=== PATIENT | female | born 1955 | race Caucasian/White ===

== ENCOUNTER 2021-05-24 00:27 | Inpatient (IN) | payer MEDICARE, MEDICAID ==
[2021-05-24] MEDS ORDERED: Cefepime 2 GM VIAL ONE (01:36)
[2021-05-24 01:40] LABS: #Basophils 0.1 10x3/uL (0.0-0.2); #Monocytes 1.4 10x3/uL (0.0-1.1); #Neutrophils 12.3 10x3/uL (1.5-8.4); %Basophils 0.6 % (0.0-2.0); %Eosinophils 0.2 % (0.0-6.0); %Lymphocytes 12.9 % (18.0-47.0); %Monocytes 8.6 % (0.0-10.0); %Neutrophils 76.1 % (40.0-75.0); Hemoglobin 13.1 g/dL (12.0-15.5); Mean Corpuscular HGB CONC 34.6 g/dL (32.0-36.0); Mean Corpuscular Volume 89.8 fl (81.6-98.3); Mean Platelet Volume 9.5 fl (7.4-10.4); Platelet Count 462 10x3/uL (150-450); RBC Distribution Width 12.7 % (11.5-14.5); Red Blood Cell (RBC) Count 4.22 10x6/uL (3.90-5.03); White Blood Cell (WBC) Count 16.2 10x3/uL (3.5-10.5)
[2021-05-24 01:51] LABS: ALT (SGPT) 21 U/L (8-55); AST (SGOT) 20 U/L (5-34); Albumin 2.9 g/dL (3.4-4.8); Alkaline Phosphatase 142 U/L (40-110); Anion Gap 16 mmol/L (10-20); BUN (Urea Nitrogen) 10 mg/dL (9.8-20.1); Bilirubin, Total 0.7 mg/dL (0.2-1.2); Calc. Creatinine Clearance 0 mL/min (70-130); Calcium 9.6 mg/dL (7.8-10.44); Carbon Dioxide 28 mmol/L (23-31); Chloride 91 mmol/L (98-107); Globulin 4.6 g/dL (2.4-3.5); Glucose 101 mg/dL (80-115); Protein, Total 7.5 g/dL (5.8-8.1); Sodium 132 mmol/L (136-145)
[2021-05-24 02:04] LABS: Potassium 2.7 mmol/L (3.5-5.1)
[2021-05-24] MEDS ORDERED: Dextrose 50% Abboject 50 ML SYRINGE SLOW IVP PRN (02:18)
[2021-05-24] MEDS ORDERED: Zolpidem Tartrate 5 MG TAB PO PRN (02:18)
[2021-05-24] MEDS ORDERED: HumaLOG 300 UNITS/3 ML VIAL SC PRN (02:18)
[2021-05-24] MEDS ORDERED: Dextrose 5% in Water 1,000 ML IV PRN (02:18)
[2021-05-24] MEDS ORDERED: Calcium Carbonate 500 MG ChewTAB PO PRN (02:18)
[2021-05-24] MEDS ORDERED: Acetaminophen 325 MG TAB PO PRN (02:18)
[2021-05-24] MEDS ORDERED: Guaifenesin DM 100-10/5 ML UDCUP PO PRN (02:18)
[2021-05-24] MEDS ORDERED: Senokot S 8.6-50 MG TAB PO PRN (02:18)
[2021-05-24] MEDS ORDERED: Morphine 4 MG/ML VIAL ONE (02:22)
[2021-05-24] MEDS ORDERED: NS 0.9% w/ 40 MEQ KCL 1,000 ML IV SCH (02:30)
[2021-05-24] MEDS ORDERED: Potassium Chloride 20 MEQ TAB PO SCH (02:45)
[2021-05-24 03:44] LABS: #Basophils 0.1 10x3/uL (0.0-0.2); #Monocytes 1.2 10x3/uL (0.0-1.1); #Neutrophils 9.9 10x3/uL (1.5-8.4); %Basophils 0.5 % (0.0-2.0); %Eosinophils 0.3 % (0.0-6.0); %Lymphocytes 14.1 % (18.0-47.0); %Monocytes 8.9 % (0.0-10.0); %Neutrophils 74.7 % (40.0-75.0); Mean Corpuscular HGB CONC 34.2 g/dL (32.0-36.0); Mean Corpuscular Hemoglobin 30.8 pg (27.0-33.0); Mean Corpuscular Volume 90.2 fl (81.6-98.3); Mean Platelet Volume 9.1 fl (7.4-10.4); Platelet Count 404 10x3/uL (150-450); RBC Distribution Width 12.7 % (11.5-14.5); Red Blood Cell (RBC) Count 3.89 10x6/uL (3.90-5.03); White Blood Cell (WBC) Count 13.2 10x3/uL (3.5-10.5)
[2021-05-24 03:54] LABS: Anion Gap 14 mmol/L (10-20); BUN (Urea Nitrogen) 9 mg/dL (9.8-20.1); Calc. Creatinine Clearance 0 mL/min (70-130); Calcium 8.7 mg/dL (7.8-10.44); Carbon Dioxide 27 mmol/L (23-31); Chloride 96 mmol/L (98-107); Glucose 99 mg/dL (80-115); Magnesium 1.5 mg/dL (1.6-2.6); Sodium 134 mmol/L (136-145)
[2021-05-24 04:05] LABS: Potassium 2.7 mmol/L (3.5-5.1)
[2021-05-24] MEDS ORDERED: Potassium Chloride 20 MEQ TAB ONE (04:32)
[2021-05-24] MEDS ORDERED: NS 0.9% w/ 40 MEQ KCL 1,000 ML IV ONE (04:33)
[2021-05-24] MEDS: Famotidine 20 MG TAB PO SCH ×2 (09:02→21:41)
[2021-05-24] MEDS: Lisinopril 10 MG TAB PO SCH (09:03)
[2021-05-24] MEDS: Nicotine 21 MG PATCH TD SCH (09:03)
[2021-05-24] MEDS: Morphine 2 MG/ML VIAL SLOW IVP PRN ×2 (09:03→13:49)
[2021-05-24] MEDS: Enoxaparin Sodium 40 MG/0.4 ML SYRINGE SC SCH (09:03)
[2021-05-24] MEDS: Aspirin 81 mg Enteric Coated Tablet PO SCH (09:03)
[2021-05-24 10:41] LABS: SARS-CoV-2 NAA Rapid Test Not Detected (NotDetected)
[2021-05-24] MEDS: HYDROcodone/Acetaminophen 5/325 mg Tablet PO PRN ×2 (11:41→23:43)
[2021-05-24 11:54] LABS: Hemoglobin A1c 5.2 % (4.0-6.0)
[2021-05-24] MEDS ORDERED: Magnesium 2 GM/50 ML 2 GM in Premix Bag 1 BAG IVPB SCH (13:45)
[2021-05-24] MEDS ORDERED: Vancomycin 1 GM in Premix Bag 1 BAG IVPB SCH (14:00)
[2021-05-24] MEDS ORDERED: Vancomycin 1 GM in Sodium Chloride 0.9% 250 ML 250 ML IVPB SCH (14:00)
[2021-05-24 14:04] LABS: Anion Gap 11 mmol/L (10-20); BUN (Urea Nitrogen) 8 mg/dL (9.8-20.1); Calc. Creatinine Clearance 120 mL/min (70-130); Calcium 8.4 mg/dL (7.8-10.44); Carbon Dioxide 25 mmol/L (23-31); Chloride 101 mmol/L (98-107); Glucose 95 mg/dL (80-115); Potassium 3.3 mmol/L (3.5-5.1); Sodium 134 mmol/L (136-145)
[2021-05-24] MEDS: Cefepime 2 GM in Sodium Chloride 0.9% 100 ML IVPB SCH (15:26)
[2021-05-24] MEDS: Gabapentin 300 MG CAP PO SCH ×2 (15:26→21:41)
[2021-05-24] MEDS: Morphine 4 MG/ML VIAL SLOW IVP PRN (19:33)
[2021-05-25] MEDS: Vancomycin HCl 1 GM in Sodium Chloride 0.9% 250 ML 250 ML IVPB SCH ×2 (02:09→18:51)
[2021-05-25] MEDS: Cefepime 2 GM in Sodium Chloride 0.9% 100 ML IVPB SCH ×2 (02:09→15:58)
[2021-05-25 04:39] LABS: #Eosinphils 0.1 10x3/uL (0.0-0.5); #Monocytes 0.7 10x3/uL (0.0-1.1); %Basophils 0.5 % (0.0-2.0); %Eosinophils 1.4 % (0.0-6.0); %Lymphocytes 22.6 % (18.0-47.0); %Neutrophils 64.7 % (40.0-75.0); Hemoglobin 11.4 g/dL (12.0-15.5); Mean Corpuscular HGB CONC 33.9 g/dL (32.0-36.0); Mean Corpuscular Hemoglobin 30.9 pg (27.0-33.0); Mean Corpuscular Volume 91.1 fl (81.6-98.3); Mean Platelet Volume 9.2 fl (7.4-10.4); Platelet Count 394 10x3/uL (150-450); Red Blood Cell (RBC) Count 3.69 10x6/uL (3.90-5.03); White Blood Cell (WBC) Count 7.8 10x3/uL (3.5-10.5)
[2021-05-25 04:48] LABS: ALT (SGPT) 17 U/L (8-55); AST (SGOT) 18 U/L (5-34); Albumin 2.3 g/dL (3.4-4.8); Alkaline Phosphatase 114 U/L (40-110); Anion Gap 11 mmol/L (10-20); BUN (Urea Nitrogen) 9 mg/dL (9.8-20.1); Bilirubin, Total 0.4 mg/dL (0.2-1.2); Calc. Creatinine Clearance 106 mL/min (70-130); Calcium 8.7 mg/dL (7.8-10.44); Carbon Dioxide 28 mmol/L (23-31); Chloride 101 mmol/L (98-107); Globulin 3.6 g/dL (2.4-3.5); Glucose 87 mg/dL (80-115); Protein, Total 5.9 g/dL (5.8-8.1); Sodium 137 mmol/L (136-145)
[2021-05-25] MEDS ORDERED: Potassium Phosphate 30 MMOL in Sodium Chloride 0.9% 250 ML 250 ML IVPB SCH (08:00)
[2021-05-25 08:58] LABS: Magnesium 1.9 mg/dL (1.6-2.6)
[2021-05-25] MEDS: Morphine 4 MG/ML VIAL SLOW IVP PRN ×2 (09:45→14:32)
[2021-05-25] MEDS: Aspirin 81 mg Enteric Coated Tablet PO SCH (11:09)
[2021-05-25] MEDS: Lisinopril 10 MG TAB PO SCH (11:09)
[2021-05-25] MEDS: Famotidine 20 MG TAB PO SCH ×2 (11:09→21:07)
[2021-05-25] MEDS: Gabapentin 300 MG CAP PO SCH ×3 (11:09→21:12)
[2021-05-25] MEDS: Enoxaparin Sodium 40 MG/0.4 ML SYRINGE SC SCH (11:09)
[2021-05-25] MEDS: Potassium Chloride 20 MEQ in Premix Bag 1 BAG IVPB SCH ×2 (11:43→18:51)
[2021-05-25 13:38] LABS: Vancomycin, Trough 8.3 ug/mL
[2021-05-25] MEDS: Nicotine 21 MG PATCH TD SCH (14:57)
[2021-05-25] MEDS ORDERED: Fentanyl 100 MCG/2 ML VIAL ONE (16:16)
[2021-05-25] MEDS ORDERED: PROPOFOL 20 ML ONE (16:16)
[2021-05-25] MEDS ORDERED: Midazolam HCl 2 mg/2 ml Vial ONE (16:16)
[2021-05-25] MEDS ORDERED: Glycopyrrolate 0.2 MG/ML 5 ML SYRINGE ONE (16:17)
[2021-05-25] MEDS ORDERED: Lidocaine 1% PF 5 ML VIAL ONE (16:17)
[2021-05-25] MEDS ORDERED: Ondansetron PF 4 MG/2 ML Vial ONE (16:17)
[2021-05-25] MEDS ORDERED: Morphine 4 MG/ML VIAL ONE ×2 (17:49→17:58)
[2021-05-25] MEDS: HYDROcodone/Acetaminophen 5/325 mg Tablet PO PRN (18:52)
[2021-05-26] MEDS: HYDROcodone/Acetaminophen 5/325 mg Tablet PO PRN ×4 (00:24→22:03)
[2021-05-26] MEDS: Cefepime 2 GM in Sodium Chloride 0.9% 100 ML IVPB SCH ×2 (02:07→13:49)
[2021-05-26] MEDS: Morphine 4 MG/ML VIAL SLOW IVP PRN ×3 (03:59→17:50)
[2021-05-26 05:24] LABS: #Basophils 0.1 10x3/uL (0.0-0.2); #Eosinphils 0.1 10x3/uL (0.0-0.5); #Monocytes 0.7 10x3/uL (0.0-1.1); #Neutrophils 8.4 10x3/uL (1.5-8.4); %Basophils 0.4 % (0.0-2.0); %Eosinophils 1.2 % (0.0-6.0); %Lymphocytes 15.5 % (18.0-47.0); %Neutrophils 75.3 % (40.0-75.0); Hemoglobin 11.3 g/dL (12.0-15.5); Mean Corpuscular HGB CONC 33.7 g/dL (32.0-36.0); Mean Corpuscular Hemoglobin 30.8 pg (27.0-33.0); Mean Corpuscular Volume 91.3 fl (81.6-98.3); Platelet Count 395 10x3/uL (150-450); RBC Distribution Width 13.2 % (11.5-14.5); Red Blood Cell (RBC) Count 3.67 10x6/uL (3.90-5.03); White Blood Cell (WBC) Count 11.1 10x3/uL (3.5-10.5)
[2021-05-26 05:33] LABS: ALT (SGPT) 15 U/L (8-55); AST (SGOT) 15 U/L (5-34); Albumin 2.2 g/dL (3.4-4.8); Alkaline Phosphatase 109 U/L (40-110); Anion Gap 13 mmol/L (10-20); BUN (Urea Nitrogen) 9 mg/dL (9.8-20.1); Bilirubin, Total 0.3 mg/dL (0.2-1.2); Calc. Creatinine Clearance 106 mL/min (70-130); Calcium 8.3 mg/dL (7.8-10.44); Carbon Dioxide 24 mmol/L (23-31); Chloride 103 mmol/L (98-107); Globulin 3.5 g/dL (2.4-3.5); Glucose 155 mg/dL (80-115); Potassium 3.5 mmol/L (3.5-5.1); Protein, Total 5.7 g/dL (5.8-8.1); Sodium 136 mmol/L (136-145)
[2021-05-26] MEDS: Vancomycin HCl 1 GM in Sodium Chloride 0.9% 250 ML 250 ML IVPB SCH ×2 (05:37→17:51)
[2021-05-26] MEDS: Lisinopril 10 MG TAB PO SCH (08:31)
[2021-05-26] MEDS: Gabapentin 300 MG CAP PO SCH ×3 (08:31→22:02)
[2021-05-26] MEDS: Famotidine 20 MG TAB PO SCH ×2 (08:31→22:02)
[2021-05-26] MEDS: Nicotine 21 MG PATCH TD SCH (08:32)
[2021-05-26] MEDS: Aspirin 81 mg Enteric Coated Tablet PO SCH (08:32)
[2021-05-26] MEDS: Enoxaparin Sodium 40 MG/0.4 ML SYRINGE SC SCH (08:32)
[2021-05-26] MEDS: Ondansetron PF 4 MG/2 ML Vial IVP PRN (13:49)
[2021-05-26] MEDS ORDERED: Potassium Chloride 20 MEQ TAB PO SCH (14:30)
[2021-05-27] MEDS: Morphine 4 MG/ML VIAL SLOW IVP PRN ×3 (00:38→21:37)
[2021-05-27] MEDS: Cefepime 2 GM in Sodium Chloride 0.9% 100 ML IVPB SCH ×2 (02:27→14:17)
[2021-05-27] MEDS: Vancomycin HCl 1 GM in Sodium Chloride 0.9% 250 ML 250 ML IVPB SCH ×2 (04:51→18:17)
[2021-05-27] MEDS: HYDROcodone/Acetaminophen 5/325 mg Tablet PO PRN ×2 (06:44→14:34)
[2021-05-27 10:10] LABS: Anion Gap 10 mmol/L (10-20); BUN (Urea Nitrogen) 7 mg/dL (9.8-20.1); Calc. Creatinine Clearance 117 mL/min (70-130); Calcium 8.5 mg/dL (7.8-10.44); Carbon Dioxide 27 mmol/L (23-31); Chloride 106 mmol/L (98-107); Glucose 94 mg/dL (80-115); Sodium 139 mmol/L (136-145)
[2021-05-27] MEDS: Aspirin 81 mg Enteric Coated Tablet PO SCH (10:22)
[2021-05-27] MEDS: Famotidine 20 MG TAB PO SCH ×2 (10:22→21:41)
[2021-05-27] MEDS: Enoxaparin Sodium 40 MG/0.4 ML SYRINGE SC SCH (10:23)
[2021-05-27] MEDS: Gabapentin 300 MG CAP PO SCH ×3 (10:23→21:40)
[2021-05-27] MEDS: Lisinopril 10 MG TAB PO SCH (10:23)
[2021-05-27] MEDS: Nicotine 21 MG PATCH TD SCH (10:24)
[2021-05-27 17:48] LABS: Vancomycin, Trough 10.8 ug/mL
[2021-05-28] MEDS: Cefepime 2 GM in Sodium Chloride 0.9% 100 ML IVPB SCH ×2 (02:40→14:39)
[2021-05-28] MEDS: HYDROcodone/Acetaminophen 5/325 mg Tablet PO PRN ×2 (02:45→18:07)
[2021-05-28] MEDS: Vancomycin HCl 1 GM in Sodium Chloride 0.9% 250 ML 250 ML IVPB SCH ×2 (06:26→18:45)
[2021-05-28] MEDS: Aspirin 81 mg Enteric Coated Tablet PO SCH (06:30)
[2021-05-28] MEDS: Gabapentin 300 MG CAP PO SCH ×3 (06:30→20:41)
[2021-05-28] MEDS: Lisinopril 10 MG TAB PO SCH (06:31)
[2021-05-28] MEDS: Famotidine 20 MG TAB PO SCH ×2 (06:31→20:41)
[2021-05-28] MEDS: Morphine 4 MG/ML VIAL SLOW IVP PRN ×2 (06:44→13:31)
[2021-05-28] MEDS: Enoxaparin Sodium 40 MG/0.4 ML SYRINGE SC SCH (07:37)
[2021-05-28] MEDS: Nicotine 21 MG PATCH TD SCH (09:42)
[2021-05-28] MEDS ORDERED: Heparin 10,000 UNITS/ 10 ML VIAL ONE (09:45)
[2021-05-28] MEDS ORDERED: Lidocaine 1% (PF) 30 ML VIAL ONE (09:45)
[2021-05-28] MEDS ORDERED: Fentanyl 100 MCG/2 ML VIAL ONE (09:46)
[2021-05-28] MEDS ORDERED: Sodium Chloride 0.9% 1,000 ML ONE (09:47)
[2021-05-28] MEDS ORDERED: Midazolam HCl 2 mg/2 ml Vial ONE (09:47)
[2021-05-28] MEDS ORDERED: Nitroglycerin 50 MG/250 ML BOT 250 ML ONE (10:52)
[2021-05-28] MEDS ORDERED: Nitroglycerin 0.4 MG TAB (25 Tab Bottle) SL PRN (11:07)
[2021-05-28] MEDS ORDERED: Sodium Chloride 0.9% 200 ML IV PRN (11:07)
[2021-05-28] MEDS ORDERED: Acetaminophen/Codeine 30-300mg Tablet PO PRN ×2 (11:07)
[2021-05-28] MEDS ORDERED: Sodium Chloride 0.9% 1,000 ML IV SCH (11:15)
[2021-05-29] MEDS: Cefepime 2 GM in Sodium Chloride 0.9% 100 ML IVPB SCH ×2 (02:53→15:45)
[2021-05-29] MEDS: Morphine 4 MG/ML VIAL SLOW IVP PRN (03:15)
[2021-05-29] MEDS: Vancomycin HCl 1 GM in Sodium Chloride 0.9% 250 ML 250 ML IVPB SCH ×2 (05:22→18:36)
[2021-05-29] MEDS: HYDROcodone/Acetaminophen 5/325 mg Tablet PO PRN ×3 (05:29→22:52)
[2021-05-29] MEDS: Aspirin 81 mg Enteric Coated Tablet PO SCH (10:03)
[2021-05-29] MEDS: Gabapentin 300 MG CAP PO SCH ×3 (10:03→22:53)
[2021-05-29] MEDS: Lisinopril 10 MG TAB PO SCH (10:03)
[2021-05-29] MEDS: Enoxaparin Sodium 40 MG/0.4 ML SYRINGE SC SCH (10:03)
[2021-05-29] MEDS: Famotidine 20 MG TAB PO SCH ×2 (10:03→22:52)
[2021-05-29] MEDS: Nicotine 21 MG PATCH TD SCH (10:04)
[2021-05-29] MEDS: Ondansetron PF 4 MG/2 ML Vial IVP PRN (12:19)
[2021-05-29] MEDS ORDERED: Acetaminophen/Codeine 30-300mg Tablet PO PRN ×2 (15:54)
[2021-05-30] MEDS ORDERED: cefTRIAXone\\ROCEPHIN 1 GM VIAL IM SCH (02:15)
[2021-05-30] MEDS: HYDROcodone/Acetaminophen 5/325 mg Tablet PO PRN ×4 (03:34→21:29)
[2021-05-30] MEDS: Cefepime 2 GM in Sodium Chloride 0.9% 100 ML IVPB SCH ×2 (03:36→17:07)
[2021-05-30 05:56] LABS: BUN (Urea Nitrogen) 9 mg/dL (9.8-20.1); Calc. Creatinine Clearance 120 mL/min (70-130); Vancomycin, Trough 12.4 ug/mL
[2021-05-30] MEDS ORDERED: Sodium Chloride 0.9% 250 ML 250 ML ONE (06:00)
[2021-05-30] MEDS: Vancomycin HCl 1 GM in Sodium Chloride 0.9% 250 ML 250 ML IVPB SCH ×2 (06:28→18:36)
[2021-05-30] MEDS: Gabapentin 300 MG CAP PO SCH ×3 (09:58→21:29)
[2021-05-30] MEDS: Aspirin 81 mg Enteric Coated Tablet PO SCH (09:59)
[2021-05-30] MEDS: Famotidine 20 MG TAB PO SCH ×2 (09:59→21:29)
[2021-05-30] MEDS: Lisinopril 10 MG TAB PO SCH (09:59)
[2021-05-30] MEDS: Nicotine 21 MG PATCH TD SCH (10:00)
[2021-05-30] MEDS: Enoxaparin Sodium 40 MG/0.4 ML SYRINGE SC SCH (10:00)
[2021-05-30] MEDS ORDERED: Cefepime 2 GM VIAL ONE (17:03)
[2021-05-30] MEDS ORDERED: cefTRIAXone\\ROCEPHIN 2 GM in Sodium Chloride 0.9% 100 ML IVPB SCH (21:00)
[2021-05-30] MEDS: metroNIDAZOLE 500 MG TAB PO SCH (21:30)
[2021-05-31 06:43] LABS: #Basophils 0.1 10x3/uL (0.0-0.2); #Eosinphils 0.3 10x3/uL (0.0-0.5); #Monocytes 0.6 10x3/uL (0.0-1.1); #Neutrophils 5.6 10x3/uL (1.5-8.4); %Basophils 0.7 % (0.0-2.0); %Eosinophils 3.1 % (0.0-6.0); %Lymphocytes 23.1 % (18.0-47.0); %Monocytes 7.1 % (0.0-10.0); %Neutrophils 64.3 % (40.0-75.0); Hemoglobin 12.3 g/dL (12.0-15.5); Mean Corpuscular HGB CONC 31.9 g/dL (32.0-36.0); Mean Corpuscular Hemoglobin 30.8 pg (27.0-33.0); Mean Corpuscular Volume 96.5 fl (81.6-98.3); Mean Platelet Volume 9.1 fl (7.4-10.4); Platelet Count 403 10x3/uL (150-450); RBC Distribution Width 13.1 % (11.5-14.5); White Blood Cell (WBC) Count 8.7 10x3/uL (3.5-10.5)
[2021-05-31 06:54] LABS: Anion Gap 11 mmol/L (10-20); BUN (Urea Nitrogen) 10 mg/dL (9.8-20.1); Calc. Creatinine Clearance 100 mL/min (70-130); Carbon Dioxide 28 mmol/L (23-31); Chloride 105 mmol/L (98-107); Potassium 4.2 mmol/L (3.5-5.1); Sodium 140 mmol/L (136-145)
[2021-05-31 09:19] LABS: Calcium 9.3 mg/dL (7.8-10.44); Glucose 85 mg/dL (80-115)
[2021-05-31] MEDS ORDERED: Carvedilol 6.25 MG TAB PO SCH (09:30)
[2021-05-31] MEDS: Enoxaparin Sodium 40 MG/0.4 ML SYRINGE SC SCH ×3 (09:36→14:14)
[2021-05-31] MEDS: Aspirin 81 mg Enteric Coated Tablet PO SCH (09:36)
[2021-05-31] MEDS: Famotidine 20 MG TAB PO SCH ×2 (09:37→21:46)
[2021-05-31] MEDS: metroNIDAZOLE 500 MG TAB PO SCH ×3 (09:37→21:45)
[2021-05-31] MEDS: Nicotine 21 MG PATCH TD SCH (09:37)
[2021-05-31] MEDS: Gabapentin 300 MG CAP PO SCH ×3 (09:37→21:45)
[2021-05-31] MEDS: Lisinopril 10 MG TAB PO SCH (09:40)
[2021-05-31] MEDS ORDERED: Sodium Bicarbonate 2.5 MEQ/5 ML VIAL ONE (09:46)
[2021-05-31] MEDS ORDERED: Lidocaine 1% PF 5 ML VIAL ONE (09:46)
[2021-05-31] MEDS: HYDROcodone/Acetaminophen 5/325 mg Tablet PO PRN ×2 (10:08→21:46)
[2021-05-31] MEDS: Morphine 4 MG/ML VIAL SLOW IVP PRN ×2 (13:48→17:16)
[2021-05-31] MEDS: Carvedilol 6.25 MG TAB PO SCH (18:20)
[2021-05-31] MEDS: Ondansetron PF 4 MG/2 ML Vial IVP PRN (21:45)
[2021-06-01] MEDS ORDERED: cefTRIAXone\\ROCEPHIN 2 GM in Sodium Chloride 0.9% 100 ML IVPB SCH (09:00)
[2021-06-01] MEDS: Enoxaparin Sodium 40 MG/0.4 ML SYRINGE SC SCH (09:55)
[2021-06-01] MEDS: Morphine 4 MG/ML VIAL SLOW IVP PRN ×2 (09:56→14:47)
[2021-06-01] MEDS: Gabapentin 300 MG CAP PO SCH ×2 (09:56→14:47)
[2021-06-01] MEDS: Aspirin 81 mg Enteric Coated Tablet PO SCH (09:57)
[2021-06-01] MEDS: Carvedilol 6.25 MG TAB PO SCH ×2 (09:57→17:28)
[2021-06-01] MEDS: Famotidine 20 MG TAB PO SCH (09:57)
[2021-06-01] MEDS: Lisinopril 10 MG TAB PO SCH (09:57)
[2021-06-01] MEDS: metroNIDAZOLE 500 MG TAB PO SCH ×2 (09:57→14:48)
[2021-06-01] MEDS: Nicotine 21 MG PATCH TD SCH (09:57)
[2021-06-01] MEDS: HYDROcodone/Acetaminophen 5/325 mg Tablet PO PRN ×2 (12:52→17:28)
[2021-06-01] MEDS: Ondansetron PF 4 MG/2 ML Vial IVP PRN (12:52)
[2021-06-01 14:23] VITALS: BMI 29.0
[2021-06-01 16:07] VITALS: BP 114/61; TEMP 97.6
== END 2021-06-01 19:50 | disposition home or self-care (01) | DRG 854 ==
LOC: CSHERS 00:27 → CSHERHOLD 03:02 → CSHTELE 08:26
PROVIDERS: ADMIT Emergency Medicine; ATTEND Family Medicine
PROC: B4001ZZ Plain Radiography of Abdominal Aorta using Low Osmolar Contrast (ICD-10-PCS; principal; 2021-05-24)
PROC: B50 Imaging, Veins, Plain Radiography (ICD-10-PCS; 2021-05-24)
PROC: 0Y6M0ZB Detachment at Right Foot, Partial 2nd Ray, Open Approach (ICD-10-PCS; 2021-05-25)
PROC: 0J9Q0ZZ Drainage of Right Foot Subcutaneous Tissue and Fascia, Open Approach (ICD-10-PCS; 2021-05-25)
PROC: 02HV33Z Insertion of Infusion Device into Superior Vena Cava, Percutaneous Approach (ICD-10-PCS; 2021-05-31)
PROC: B5181ZA Fluoroscopy of Superior Vena Cava using Low Osmolar Contrast, Guidance (ICD-10-PCS; 2021-05-31)
DX: A41.9 Sepsis, unspecified organism (principal); M86.171 Other acute osteomyelitis, right ankle and foot; L02.611 Cutaneous abscess of right foot; E11.52 Type 2 diabetes mellitus with diabetic peripheral angiopathy with gangrene; I96 Gangrene, not elsewhere classified; E11.42 Type 2 diabetes mellitus with diabetic polyneuropathy; F17.210 Nicotine dependence, cigarettes, uncomplicated; Z88.5 Allergy status to narcotic agent; E87.6 Hypokalemia; Z91.19 Patient's noncompliance with other medical treatment and regimen; E11.621 Type 2 diabetes mellitus with foot ulcer; L97.519 Non-pressure chronic ulcer of other part of right foot with unspecified severity; I12.9 Hypertensive chronic kidney disease with stage 1 through stage 4 chronic kidney disease, or unspecified chronic kidney disease; E11.22 Type 2 diabetes mellitus with diabetic chronic kidney disease; N18.2 Chronic kidney disease, stage 2 (mild); Z20.822 Contact with and (suspected) exposure to COVID-19; J44.9 Chronic obstructive pulmonary disease, unspecified
CPT/HCPCS: 36140; 36245; 36415; 36416; 36569; 75625; 75716; 80048; 80053; 80202; 82565; 83036; 83605; 83735; 84520; 85025; 85652; 86140; 87040; 88305; 93005; 93306; 93923; 93970; 96365; 96375; 99152; 99153; C1751; C1760; J0692; J0696; J1644; J1650; J1815; J2001; J2250; J2270; J2405; J2704; J3010; J3370; J3475; J3480; J3490; J7050; U0002

== ENCOUNTER 2021-06-17 13:08 | Outpatient (CLI) | payer MEDICAID, MEDICARE | END 2021-06-17 13:09 | disposition home or self-care (01) | LOC: CSHULT 13:08 | PROVIDERS: ATTEND Physical Medicine & Rehabilitation | DX: M79.89 Other specified soft tissue disorders (principal) | CPT/HCPCS: 93970 ==

== ENCOUNTER 2021-07-20 09:14 | Outpatient (CLI) | payer MEDICARE, MEDICAID | END 2021-07-20 09:15 | disposition home or self-care (01) | LOC: CSHWCC 09:14 | PROVIDERS: ATTEND Nurse Practitioner Family | DX: T81.89XA Other complications of procedures, not elsewhere classified, initial encounter (principal); E11.40 Type 2 diabetes mellitus with diabetic neuropathy, unspecified; E11.621 Type 2 diabetes mellitus with foot ulcer; L97.412 Non-pressure chronic ulcer of right heel and midfoot with fat layer exposed; E78.2 Mixed hyperlipidemia; G89.4 Chronic pain syndrome; I10 Essential (primary) hypertension; I87.2 Venous insufficiency (chronic) (peripheral); I89.0 Lymphedema, not elsewhere classified; K46.9 Unspecified abdominal hernia without obstruction or gangrene; R60.0 Localized edema | CPT/HCPCS: 97139; G0463; 99213 ==

== ENCOUNTER 2021-09-06 09:32 | Outpatient (CLI) | payer MEDICARE, MEDICAID | END 2021-09-06 09:33 | disposition home or self-care (01) | LOC: CSHWCC 09:32 | PROVIDERS: ATTEND Nurse Practitioner Family | DX: T81.89XA Other complications of procedures, not elsewhere classified, initial encounter (principal); E11.40 Type 2 diabetes mellitus with diabetic neuropathy, unspecified; E11.621 Type 2 diabetes mellitus with foot ulcer; L97.412 Non-pressure chronic ulcer of right heel and midfoot with fat layer exposed; L97.422 Non-pressure chronic ulcer of left heel and midfoot with fat layer exposed; E78.2 Mixed hyperlipidemia; G89.4 Chronic pain syndrome; I10 Essential (primary) hypertension; I87.2 Venous insufficiency (chronic) (peripheral); I89.0 Lymphedema, not elsewhere classified; K46.9 Unspecified abdominal hernia without obstruction or gangrene; R60.0 Localized edema ==

== ENCOUNTER 2021-09-13 09:57 | Outpatient (CLI) | payer MEDICARE, MEDICAID | END 2021-09-13 09:58 | disposition home or self-care (01) | LOC: CSHWCC 09:57 | PROVIDERS: ATTEND Nurse Practitioner Family | DX: T81.89XD Other complications of procedures, not elsewhere classified, subsequent encounter (principal); E11.621 Type 2 diabetes mellitus with foot ulcer; L97.422 Non-pressure chronic ulcer of left heel and midfoot with fat layer exposed; L97.412 Non-pressure chronic ulcer of right heel and midfoot with fat layer exposed; R60.0 Localized edema; E11.40 Type 2 diabetes mellitus with diabetic neuropathy, unspecified; E78.2 Mixed hyperlipidemia; G89.4 Chronic pain syndrome; I10 Essential (primary) hypertension; I87.2 Venous insufficiency (chronic) (peripheral); I89.0 Lymphedema, not elsewhere classified; K46.9 Unspecified abdominal hernia without obstruction or gangrene | CPT/HCPCS: 11042; 99213; G0463 ==

== ENCOUNTER 2021-09-20 10:29 | Outpatient (CLI) | payer MEDICARE, MEDICAID | END 2021-09-20 10:30 | disposition home or self-care (01) | LOC: CSHWCC 10:29 | PROVIDERS: ATTEND Nurse Practitioner Family | DX: T81.89XD Other complications of procedures, not elsewhere classified, subsequent encounter (principal); I87.2 Venous insufficiency (chronic) (peripheral); E11.621 Type 2 diabetes mellitus with foot ulcer; E11.40 Type 2 diabetes mellitus with diabetic neuropathy, unspecified; L97.412 Non-pressure chronic ulcer of right heel and midfoot with fat layer exposed; L97.422 Non-pressure chronic ulcer of left heel and midfoot with fat layer exposed; E78.2 Mixed hyperlipidemia; G89.4 Chronic pain syndrome; I89.0 Lymphedema, not elsewhere classified; K46.9 Unspecified abdominal hernia without obstruction or gangrene; R60.0 Localized edema ==

== ENCOUNTER 2021-10-05 10:53 | Outpatient (CLI) | payer MEDICARE, MEDICAID | END 2021-10-05 10:54 | disposition home or self-care (01) | LOC: CSHWCC 10:53 | PROVIDERS: ATTEND Nurse Practitioner Family | DX: T81.30XA Disruption of wound, unspecified, initial encounter (principal); E11.40 Type 2 diabetes mellitus with diabetic neuropathy, unspecified; E11.621 Type 2 diabetes mellitus with foot ulcer; L97.412 Non-pressure chronic ulcer of right heel and midfoot with fat layer exposed; L97.422 Non-pressure chronic ulcer of left heel and midfoot with fat layer exposed; L97.512 Non-pressure chronic ulcer of other part of right foot with fat layer exposed; E78.2 Mixed hyperlipidemia; G89.4 Chronic pain syndrome; I10 Essential (primary) hypertension; I87.2 Venous insufficiency (chronic) (peripheral); I89.0 Lymphedema, not elsewhere classified; K46.9 Unspecified abdominal hernia without obstruction or gangrene; R60.0 Localized edema; W01.10XS Fall on same level from slipping, tripping and stumbling with subsequent striking against unspecified object, sequela ==

== ENCOUNTER 2021-10-05 11:58 | Outpatient (CLI) | payer MEDICARE, MEDICAID ==
[2021-10-05 12:47] LABS: #Basophils 0.1 10x3/uL (0.0-0.2); #Eosinphils 0.3 10x3/uL (0.0-0.5); #Monocytes 0.6 10x3/uL (0.0-1.1); #Neutrophils 6.7 10x3/uL (1.5-8.4); %Basophils 0.6 % (0.0-2.0); %Eosinophils 2.7 % (0.0-6.0); %Lymphocytes 18.9 % (18.0-47.0); %Monocytes 6.6 % (0.0-10.0); Hemoglobin 12.6 g/dL (12.0-15.5); Mean Corpuscular HGB CONC 32.3 g/dL (32.0-36.0); Mean Corpuscular Hemoglobin 30.3 pg (27.0-33.0); Mean Corpuscular Volume 93.8 fl (81.6-98.3); Mean Platelet Volume 8.7 fl (7.4-10.4); Platelet Count 338 10x3/uL (150-450); RBC Distribution Width 14.6 % (11.5-14.5); Red Blood Cell (RBC) Count 4.16 10x6/uL (3.90-5.03); White Blood Cell (WBC) Count 9.4 10x3/uL (3.5-10.5)
== END 2021-10-05 11:59 | disposition home or self-care (01) ==
LOC: CSHRAD 11:58
PROVIDERS: ATTEND Nurse Practitioner Family
DX: E11.621 Type 2 diabetes mellitus with foot ulcer (principal); M79.89 Other specified soft tissue disorders
CPT/HCPCS: 36415; 85025; 86140

== ENCOUNTER 2021-10-05 22:14 | Inpatient (IN) | payer MEDICARE, MEDICAID ==
[2021-10-06 01:13] LABS: #Basophils 0.1 10x3/uL (0.0-0.2); #Eosinphils 0.2 10x3/uL (0.0-0.5); #Monocytes 0.6 10x3/uL (0.0-1.1); #Neutrophils 5.1 10x3/uL (1.5-8.4); %Basophils 0.7 % (0.0-2.0); %Eosinophils 2.5 % (0.0-6.0); %Lymphocytes 27.5 % (18.0-47.0); %Monocytes 6.9 % (0.0-10.0); %Neutrophils 62.3 % (40.0-75.0); Hemoglobin 12.6 g/dL (12.0-15.5); Mean Corpuscular Hemoglobin 30.4 pg (27.0-33.0); Mean Platelet Volume 9.1 fl (7.4-10.4); Platelet Count 317 10x3/uL (150-450); RBC Distribution Width 14.8 % (11.5-14.5); Red Blood Cell (RBC) Count 4.15 10x6/uL (3.90-5.03); White Blood Cell (WBC) Count 8.2 10x3/uL (3.5-10.5)
[2021-10-06 01:26] LABS: ALT (SGPT) Less than 6 U/L (8-55); AST (SGOT) 15 U/L (5-34); Albumin 3.1 g/dL (3.4-4.8); Alkaline Phosphatase 139 U/L (40-110); Anion Gap 11 mmol/L (10-20); BUN (Urea Nitrogen) 11 mg/dL (9.8-20.1); Bilirubin, Total 0.5 mg/dL (0.2-1.2); Calc. Creatinine Clearance 0 mL/min (70-130); Calcium 8.8 mg/dL (7.8-10.44); Carbon Dioxide 30 mmol/L (23-31); Chloride 100 mmol/L (98-107); Globulin 4.1 g/dL (2.4-3.5); Glucose 101 mg/dL (80-115); Magnesium 1.8 mg/dL (1.6-2.6); Potassium 3.7 mmol/L (3.5-5.1); Protein, Total 7.2 g/dL (5.8-8.1); Sodium 137 mmol/L (136-145)
[2021-10-06 01:27] LABS: CRP (Inflammatory) 2.41 mg/dL (= or < 0.5)
[2021-10-06] MEDS ORDERED: Morphine 4 MG/ML VIAL ONE (01:37)
[2021-10-06] MEDS ORDERED: Cefepime 2 GM VIAL ONE (01:38)
[2021-10-06 03:08] LABS: SARS-CoV-2 NAA Rapid Test Not Detected (NotDetected)
[2021-10-06] MEDS ORDERED: Acetaminophen 325 MG TAB PO PRN (03:58)
[2021-10-06] MEDS ORDERED: Piperacillin/Tazobactam 3.375 GM in Sodium Chloride 0.9% 100 ML IVPB SCH (04:00)
[2021-10-06 04:29] LABS: Magnesium 1.8 mg/dL (1.6-2.6)
[2021-10-06] MEDS ORDERED: Sodium Chloride 0.9% 1,000 ML IV SCH (05:00)
[2021-10-06 05:21] VITALS: BMI 25.0
[2021-10-06] MEDS: Piperacillin/Tazobactam 3.375 GM in Sodium Chloride 0.9% 100 ML IVPB SCH ×4 (05:31→17:30)
[2021-10-06] MEDS: Aspirin 81 mg Enteric Coated Tablet PO SCH (08:59)
[2021-10-06] MEDS: Gabapentin 300 MG CAP PO SCH ×4 (08:59→23:02)
[2021-10-06] MEDS: HYDROcodone/Acetaminophen 5/325 mg Tablet PO PRN (09:00)
[2021-10-06] MEDS ORDERED: Amlodipine 10 MG TAB PO SCH (09:00)
[2021-10-06] MEDS ORDERED: Cilostazol 100 MG TAB PO SCH (09:00)
[2021-10-06] MEDS: Enoxaparin Sodium 40 MG/0.4 ML SYRINGE SC SCH (09:01)
[2021-10-06] MEDS: Nicotine 21 MG PATCH TD SCH (09:25)
[2021-10-06] MEDS ORDERED: Promethazine HCl 25 MG in Sodium Chloride 0.9% 50 ML IVPB SCH (13:45)
[2021-10-06] MEDS ORDERED: HumaLOG 300 UNITS/3 ML VIAL SC PRN (15:19)
[2021-10-06] MEDS ORDERED: Dextrose 5% in Water 1,000 ML IV PRN (15:19)
[2021-10-06] MEDS ORDERED: Dextrose 50% Abboject 50 ML SYRINGE SLOW IVP PRN (15:19)
[2021-10-06] MEDS: Vancomycin HCl 1 GM in Sodium Chloride 0.9% 250 ML 250 ML IVPB SCH (15:55)
[2021-10-06 17:28] LABS: Glucose 88 mg/dL (80-115)
[2021-10-06] MEDS: Carvedilol 6.25 MG TAB PO SCH (17:29)
[2021-10-06] MEDS: Ondansetron PF 4 MG/2 ML Vial IVP PRN (17:48)
[2021-10-06] MEDS ORDERED: Promethazine HCl 12.5 MG in Sodium Chloride 0.9% 50 ML IVPB SCH (20:30)
[2021-10-06] MEDS ORDERED: Vancomycin HCl 1 GM in Sodium Chloride 0.9% 250 ML 250 ML IVPB SCH (21:00)
[2021-10-06] MEDS ORDERED: Lisinopril 10 MG TAB PO SCH (21:00)
[2021-10-06 21:20] LABS: Glucose 110 mg/dL (80-115)
[2021-10-07] MEDS: Ondansetron PF 4 MG/2 ML Vial IVP PRN ×3 (00:56→16:40)
[2021-10-07] MEDS: Piperacillin/Tazobactam 3.375 GM in Sodium Chloride 0.9% 100 ML IVPB SCH ×3 (00:56→18:49)
[2021-10-07] MEDS: Vancomycin HCl 1 GM in Sodium Chloride 0.9% 250 ML 250 ML IVPB SCH ×2 (04:12→15:36)
[2021-10-07 05:33] LABS: Anion Gap 8 mmol/L (10-20); BUN (Urea Nitrogen) 6 mg/dL (9.8-20.1); Calc. Creatinine Clearance 88 mL/min (70-130); Calcium 7.9 mg/dL (7.8-10.44); Carbon Dioxide 23 mmol/L (23-31); Cardiac Risk 2.6 (Less than 4.5); Chloride 113 mmol/L (98-107); Cholesterol 92 mg/dl (< 200 Desired); Glucose 89 mg/dL (80-115); HDL Cholesterol 35 mg/dL (>60 Neg Risk); LDL Cholesterol, Calculated 41 mg/dL; Potassium 3.4 mmol/L (3.5-5.1); Sodium 141 mmol/L (136-145); Triglycerides 79 mg/dL (Less than 150)
[2021-10-07 05:40] LABS: #Eosinphils 0.1 10x3/uL (0.0-0.5); #Monocytes 0.5 10x3/uL (0.0-1.1); #Neutrophils 4.2 10x3/uL (1.5-8.4); %Basophils 0.6 % (0.0-2.0); %Eosinophils 1.6 % (0.0-6.0); %Monocytes 7.4 % (0.0-10.0); %Neutrophils 66.1 % (40.0-75.0); Mean Corpuscular HGB CONC 32.7 g/dL (32.0-36.0); Mean Corpuscular Hemoglobin 30.2 pg (27.0-33.0); Mean Corpuscular Volume 92.3 fl (81.6-98.3); Mean Platelet Volume 9.5 fl (7.4-10.4); Platelet Count 271 10x3/uL (150-450); RBC Distribution Width 14.7 % (11.5-14.5); Red Blood Cell (RBC) Count 3.64 10x6/uL (3.90-5.03); White Blood Cell (WBC) Count 6.4 10x3/uL (3.5-10.5)
[2021-10-07] MEDS: HYDROcodone/Acetaminophen 5/325 mg Tablet PO PRN ×3 (08:00→21:57)
[2021-10-07 09:10] LABS: Glucose 102 mg/dL (80-115)
[2021-10-07] MEDS: Carvedilol 6.25 MG TAB PO SCH ×2 (09:29→18:48)
[2021-10-07] MEDS: Enoxaparin Sodium 40 MG/0.4 ML SYRINGE SC SCH (09:29)
[2021-10-07] MEDS: Aspirin 81 mg Enteric Coated Tablet PO SCH (09:29)
[2021-10-07] MEDS: Gabapentin 300 MG CAP PO SCH ×3 (09:31→21:56)
[2021-10-07] MEDS: Nicotine 21 MG PATCH TD SCH (09:32)
[2021-10-07 11:49] LABS: Glucose 114 mg/dL (80-115)
[2021-10-07 13:08] LABS: Hemoglobin A1c 5.1 % (4.0-6.0)
[2021-10-07 15:21] LABS: Vancomycin, Trough 14.2 ug/mL
[2021-10-07] MEDS: VANCOMYCIN 1.25 GM/250 ML BAG 1.25 GM in Premix Bag 1 BAG IVPB SCH (16:39)
[2021-10-07 17:13] LABS: Glucose 116 mg/dL (80-115)
[2021-10-07 21:02] LABS: Glucose 102 mg/dL (80-115)
[2021-10-08] MEDS: Piperacillin/Tazobactam 3.375 GM in Sodium Chloride 0.9% 100 ML IVPB SCH ×3 (02:57→18:51)
[2021-10-08] MEDS: Ondansetron PF 4 MG/2 ML Vial IVP PRN ×2 (02:58→22:35)
[2021-10-08] MEDS: VANCOMYCIN 1.25 GM/250 ML BAG 1.25 GM in Premix Bag 1 BAG IVPB SCH ×2 (05:06→15:08)
[2021-10-08] MEDS: Carvedilol 6.25 MG TAB PO SCH ×2 (06:42→18:51)
[2021-10-08 07:04] LABS: ALT (SGPT) 6 U/L (8-55); AST (SGOT) 15 U/L (5-34); Albumin 2.6 g/dL (3.4-4.8); Alkaline Phosphatase 106 U/L (40-110); Anion Gap 10 mmol/L (10-20); BUN (Urea Nitrogen) 4 mg/dL (9.8-20.1); Bilirubin, Total 0.4 mg/dL (0.2-1.2); Calc. Creatinine Clearance 82 mL/min (70-130); Calcium 8.2 mg/dL (7.8-10.44); Carbon Dioxide 26 mmol/L (23-31); Chloride 109 mmol/L (98-107); Globulin 3.9 g/dL (2.4-3.5); Glucose 86 mg/dL (80-115); Potassium 3.3 mmol/L (3.5-5.1); Protein, Total 6.5 g/dL (5.8-8.1); Sodium 142 mmol/L (136-145)
[2021-10-08 07:06] LABS: #Eosinphils 0.3 10x3/uL (0.0-0.5); #Monocytes 0.4 10x3/uL (0.0-1.1); #Neutrophils 4.1 10x3/uL (1.5-8.4); %Basophils 0.6 % (0.0-2.0); %Eosinophils 4.8 % (0.0-6.0); %Lymphocytes 26.8 % (18.0-47.0); %Monocytes 5.8 % (0.0-10.0); %Neutrophils 61.7 % (40.0-75.0); Hemoglobin 11.9 g/dL (12.0-15.5); Mean Corpuscular HGB CONC 32.3 g/dL (32.0-36.0); Mean Corpuscular Hemoglobin 30.4 pg (27.0-33.0); Mean Corpuscular Volume 94.1 fl (81.6-98.3); Mean Platelet Volume 9.2 fl (7.4-10.4); Platelet Count 285 10x3/uL (150-450); RBC Distribution Width 14.8 % (11.5-14.5); Red Blood Cell (RBC) Count 3.91 10x6/uL (3.90-5.03); White Blood Cell (WBC) Count 6.7 10x3/uL (3.5-10.5)
[2021-10-08] MEDS ORDERED: Bupivacaine 0.25% HCL 30 ML VIAL ONE (08:02)
[2021-10-08] MEDS ORDERED: Fentanyl 100 MCG/2 ML VIAL ONE ×3 (08:33→10:41)
[2021-10-08] MEDS ORDERED: PROPOFOL 20 ML ONE (08:33)
[2021-10-08] MEDS ORDERED: Ondansetron PF 4 MG/2 ML Vial ONE (08:34)
[2021-10-08] MEDS ORDERED: Metoclopramide HCl 10 MG/2 ML VIAL ONE (08:34)
[2021-10-08] MEDS ORDERED: Lidocaine 1% PF 5 ML VIAL ONE (08:34)
[2021-10-08] MEDS ORDERED: PHENYLEPHRINE-NS 100 MCG/ML 10 ML SYRINGE ONE (09:09)
[2021-10-08] MEDS ORDERED: Glycopyrrolate 0.2 MG/ML 5 ML SYRINGE ONE (09:09)
[2021-10-08] MEDS ORDERED: ePHEDrine Sulfate 50 MG/10 ML VIAL ONE (09:17)
[2021-10-08] MEDS ORDERED: Phenylephrine 10 MG/ML VIAL ONE (09:38)
[2021-10-08] MEDS: Gabapentin 300 MG CAP PO SCH ×3 (11:23→22:18)
[2021-10-08] MEDS: Nicotine 21 MG PATCH TD SCH (11:23)
[2021-10-08] MEDS: Aspirin 81 mg Enteric Coated Tablet PO SCH (11:23)
[2021-10-08] MEDS: HYDROcodone/Acetaminophen 5/325 mg Tablet PO PRN ×4 (11:24→23:39)
[2021-10-08 12:26] LABS: Glucose 124 mg/dL (80-115)
[2021-10-08 17:13] LABS: Glucose 102 mg/dL (80-115)
[2021-10-08] MEDS ORDERED: Electrolyte Replacement Protocol FS SCH (18:30)
[2021-10-08] MEDS ORDERED: Magnesium 2 GM/50 ML 2 GM in Premix Bag 1 BAG IVPB SCH (21:30)
[2021-10-08] MEDS ORDERED: Potassium Chloride 20 MEQ TAB PO SCH (21:30)
[2021-10-08 22:11] LABS: Glucose 148 mg/dL (80-115)
[2021-10-09] MEDS: Piperacillin/Tazobactam 3.375 GM in Sodium Chloride 0.9% 100 ML IVPB SCH ×3 (02:26→17:51)
[2021-10-09 02:29] LABS: Vancomycin, Trough 21.9 ug/mL
[2021-10-09] MEDS: Vancomycin HCl 1 GM in Sodium Chloride 0.9% 250 ML 250 ML IVPB SCH ×2 (03:36→16:19)
[2021-10-09] MEDS: HYDROcodone/Acetaminophen 5/325 mg Tablet PO PRN ×5 (03:37→22:18)
[2021-10-09 04:59] LABS: ALT (SGPT) Less than 6 U/L (8-55); AST (SGOT) 11 U/L (5-34); Albumin 2.3 g/dL (3.4-4.8); Alkaline Phosphatase 105 U/L (40-110); Anion Gap 10 mmol/L (10-20); BUN (Urea Nitrogen) 6 mg/dL (9.8-20.1); Bilirubin, Total 0.2 mg/dL (0.2-1.2); Calc. Creatinine Clearance 89 mL/min (70-130); Carbon Dioxide 26 mmol/L (23-31); Chloride 110 mmol/L (98-107); Globulin 3.2 g/dL (2.4-3.5); Glucose 101 mg/dL (80-115); Potassium 3.3 mmol/L (3.5-5.1); Protein, Total 5.5 g/dL (5.8-8.1); Sodium 143 mmol/L (136-145)
[2021-10-09] MEDS ORDERED: Potassium Chloride 20 MEQ TAB PO SCH (05:15)
[2021-10-09 05:35] LABS: #Eosinphils 0.3 10x3/uL (0.0-0.5); #Monocytes 0.7 10x3/uL (0.0-1.1); #Neutrophils 5.3 10x3/uL (1.5-8.4); %Basophils 0.5 % (0.0-2.0); %Eosinophils 3.5 % (0.0-6.0); %Lymphocytes 22.1 % (18.0-47.0); %Monocytes 8.3 % (0.0-10.0); %Neutrophils 65.4 % (40.0-75.0); Hemoglobin 10.7 g/dL (12.0-15.5); Mean Corpuscular HGB CONC 32.5 g/dL (32.0-36.0); Mean Corpuscular Hemoglobin 30.1 pg (27.0-33.0); Mean Corpuscular Volume 92.4 fl (81.6-98.3); Mean Platelet Volume 9.6 fl (7.4-10.4); Platelet Count 276 10x3/uL (150-450); RBC Distribution Width 15.1 % (11.5-14.5); Red Blood Cell (RBC) Count 3.56 10x6/uL (3.90-5.03)
[2021-10-09] MEDS: Ondansetron PF 4 MG/2 ML Vial IVP PRN ×2 (06:15→12:39)
[2021-10-09 08:30] LABS: Glucose 98 mg/dL (80-115)
[2021-10-09] MEDS: Carvedilol 6.25 MG TAB PO SCH ×2 (09:20→17:51)
[2021-10-09] MEDS: Enoxaparin Sodium 40 MG/0.4 ML SYRINGE SC SCH (09:20)
[2021-10-09] MEDS: Nicotine 21 MG PATCH TD SCH (09:21)
[2021-10-09] MEDS: Aspirin 81 mg Enteric Coated Tablet PO SCH (09:21)
[2021-10-09] MEDS: Gabapentin 300 MG CAP PO SCH ×3 (09:21→22:13)
[2021-10-09 11:34] LABS: Glucose 127 mg/dL (80-115)
[2021-10-09 17:43] LABS: Glucose 120 mg/dL (80-115)
[2021-10-09] MEDS: Ketorolac Tromethamine 30 MG/ML VIAL IVP SCH (17:50)
[2021-10-09 21:39] LABS: Glucose 128 mg/dL (80-115)
[2021-10-10] MEDS: Ketorolac Tromethamine 30 MG/ML VIAL IVP SCH ×4 (01:35→18:39)
[2021-10-10] MEDS: Vancomycin HCl 1 GM in Sodium Chloride 0.9% 250 ML 250 ML IVPB SCH ×2 (01:37→16:13)
[2021-10-10] MEDS: Piperacillin/Tazobactam 3.375 GM in Sodium Chloride 0.9% 100 ML IVPB SCH ×3 (04:08→18:39)
[2021-10-10 04:24] LABS: #Eosinphils 0.4 10x3/uL (0.0-0.5); #Monocytes 0.4 10x3/uL (0.0-1.1); %Basophils 0.5 % (0.0-2.0); %Eosinophils 6.5 % (0.0-6.0); %Lymphocytes 22.5 % (18.0-47.0); %Monocytes 6.7 % (0.0-10.0); %Neutrophils 63.6 % (40.0-75.0); Hemoglobin 9.9 g/dL (12.0-15.5); Mean Corpuscular HGB CONC 32.5 g/dL (32.0-36.0); Mean Corpuscular Hemoglobin 30.2 pg (27.0-33.0); Mean Platelet Volume 9.7 fl (7.4-10.4); Platelet Count 257 10x3/uL (150-450); RBC Distribution Width 15.4 % (11.5-14.5); Red Blood Cell (RBC) Count 3.28 10x6/uL (3.90-5.03); White Blood Cell (WBC) Count 6.3 10x3/uL (3.5-10.5)
[2021-10-10 04:39] LABS: ALT (SGPT) Less than 6 U/L (8-55); AST (SGOT) 11 U/L (5-34); Albumin 2.1 g/dL (3.4-4.8); Alkaline Phosphatase 109 U/L (40-110); Anion Gap 9 mmol/L (10-20); BUN (Urea Nitrogen) 6 mg/dL (9.8-20.1); Bilirubin, Total 0.3 mg/dL (0.2-1.2); Calc. Creatinine Clearance 92 mL/min (70-130); Calcium 7.8 mg/dL (7.8-10.44); Carbon Dioxide 24 mmol/L (23-31); Chloride 111 mmol/L (98-107); Globulin 3.3 g/dL (2.4-3.5); Glucose 92 mg/dL (80-115); Potassium 3.7 mmol/L (3.5-5.1); Protein, Total 5.4 g/dL (5.8-8.1); Sodium 140 mmol/L (136-145)
[2021-10-10 07:43] LABS: Glucose 128 mg/dL (80-115)
[2021-10-10] MEDS: HYDROcodone/Acetaminophen 5/325 mg Tablet PO PRN ×4 (08:46→21:50)
[2021-10-10] MEDS: Aspirin 81 mg Enteric Coated Tablet PO SCH (08:46)
[2021-10-10] MEDS: Enoxaparin Sodium 40 MG/0.4 ML SYRINGE SC SCH (08:46)
[2021-10-10] MEDS: Gabapentin 300 MG CAP PO SCH ×3 (08:47→21:51)
[2021-10-10] MEDS: Nicotine 21 MG PATCH TD SCH (08:47)
[2021-10-10] MEDS: Carvedilol 6.25 MG TAB PO SCH ×2 (08:47→18:39)
[2021-10-10 11:42] LABS: Glucose 111 mg/dL (80-115)
[2021-10-10] MEDS: Ondansetron PF 4 MG/2 ML Vial IVP PRN (13:37)
[2021-10-10 14:12] LABS: Vancomycin, Trough 17.4 ug/mL
[2021-10-10 17:02] LABS: Glucose 112 mg/dL (80-115)
[2021-10-10 21:37] LABS: Glucose 103 mg/dL (80-115)
[2021-10-11] MEDS: Ketorolac Tromethamine 30 MG/ML VIAL IVP SCH ×4 (00:28→18:44)
[2021-10-11] MEDS: Piperacillin/Tazobactam 3.375 GM in Sodium Chloride 0.9% 100 ML IVPB SCH ×3 (00:29→18:45)
[2021-10-11] MEDS: Ondansetron PF 4 MG/2 ML Vial IVP PRN ×4 (00:48→21:04)
[2021-10-11] MEDS: Vancomycin HCl 1 GM in Sodium Chloride 0.9% 250 ML 250 ML IVPB SCH ×2 (04:15→15:44)
[2021-10-11 08:03] LABS: Glucose 107 mg/dL (80-115)
[2021-10-11] MEDS: HYDROcodone/Acetaminophen 5/325 mg Tablet PO PRN ×2 (10:41→21:15)
[2021-10-11] MEDS: Carvedilol 6.25 MG TAB PO SCH ×2 (10:42→18:46)
[2021-10-11] MEDS: Aspirin 81 mg Enteric Coated Tablet PO SCH (10:42)
[2021-10-11] MEDS: Gabapentin 300 MG CAP PO SCH ×3 (10:42→21:04)
[2021-10-11] MEDS: Enoxaparin Sodium 40 MG/0.4 ML SYRINGE SC SCH (10:43)
[2021-10-11] MEDS: Nicotine 21 MG PATCH TD SCH (10:44)
[2021-10-11 12:08] LABS: Glucose 97 mg/dL (80-115)
[2021-10-11] MEDS: Metoclopramide HCl 10 MG/2 ML VIAL IVP PRN (18:44)
[2021-10-11 20:19] LABS: Glucose 101 mg/dL (80-115)
[2021-10-11 21:31] LABS: Glucose 105 mg/dL (80-115)
[2021-10-12] MEDS: Ketorolac Tromethamine 30 MG/ML VIAL IVP SCH ×4 (00:02→18:15)
[2021-10-12] MEDS: Metoclopramide HCl 10 MG/2 ML VIAL IVP PRN ×3 (00:20→18:14)
[2021-10-12] MEDS ORDERED: Carvedilol 6.25 MG TAB PO SCH (01:15)
[2021-10-12] MEDS: Piperacillin/Tazobactam 3.375 GM in Sodium Chloride 0.9% 100 ML IVPB SCH ×3 (01:30→18:16)
[2021-10-12] MEDS ORDERED: Melatonin 3 MG TAB PO PRN (01:51)
[2021-10-12] MEDS: HYDROcodone/Acetaminophen 5/325 mg Tablet PO PRN ×3 (01:53→18:14)
[2021-10-12] MEDS: Carvedilol 6.25 MG TAB PO SCH ×2 (08:43→18:14)
[2021-10-12] MEDS: Gabapentin 300 MG CAP PO SCH ×2 (08:43→18:14)
[2021-10-12] MEDS: Aspirin 81 mg Enteric Coated Tablet PO SCH (08:44)
[2021-10-12] MEDS: Enoxaparin Sodium 40 MG/0.4 ML SYRINGE SC SCH (08:45)
[2021-10-12] MEDS: Nicotine 21 MG PATCH TD SCH (08:45)
[2021-10-12 09:02] LABS: Glucose 104 mg/dL (80-115)
[2021-10-12 12:09] LABS: Glucose 100 mg/dL (80-115)
[2021-10-12 16:06] VITALS: BP 147/66; TEMP 97.7
[2021-10-12 17:29] LABS: Glucose 93 mg/dL (80-115)
== END 2021-10-12 20:37 | disposition home or self-care (01) | DRG 617 ==
LOC: CSHERS 22:14 → CSHTELE 10-06 05:01
PROVIDERS: ADMIT Family Medicine; ATTEND Hospitalist
PROC: 0Y6N0Z9 Detachment at Left Foot, Partial 1st Ray, Open Approach (ICD-10-PCS; principal; 2021-10-08)
PROC: 0Y6M0Z9 Detachment at Right Foot, Partial 1st Ray, Open Approach (ICD-10-PCS; 2021-10-08)
DX: E11.69 Type 2 diabetes mellitus with other specified complication (principal); M86.8X7 Other osteomyelitis, ankle and foot; L03.116 Cellulitis of left lower limb; L03.115 Cellulitis of right lower limb; M60.074 Infective myositis, left foot; M60.073 Infective myositis, right foot; Z20.822 Contact with and (suspected) exposure to COVID-19; E11.628 Type 2 diabetes mellitus with other skin complications; E11.42 Type 2 diabetes mellitus with diabetic polyneuropathy; I77.1 Stricture of artery; I70.202 Unspecified atherosclerosis of native arteries of extremities, left leg; I10 Essential (primary) hypertension; F17.210 Nicotine dependence, cigarettes, uncomplicated; E11.51 Type 2 diabetes mellitus with diabetic peripheral angiopathy without gangrene; Z88.5 Allergy status to narcotic agent; Z79.82 Long term (current) use of aspirin; Z90.49 Acquired absence of other specified parts of digestive tract; Z90.710 Acquired absence of both cervix and uterus; Z89.421 Acquired absence of other right toe(s); Z71.6 Tobacco abuse counseling; Z91.19 Patient's noncompliance with other medical treatment and regimen
CPT/HCPCS: 36415; 36416; 80053; 80061; 80202; 82550; 82947; 83036; 83605; 83735; 85025; 86140; 87040; 87324; 87449; 87493; 88305; 88311; 93005; 93010; 96365; 96366; 96367; 96375; J0692; J1650; J1885; J2270; J2370; J2405; J2543; J2550; J2704; J2765; J3010; J3370; J3475; J3490; J7050; S0020; U0002

== ENCOUNTER 2021-10-22 10:26 | Outpatient (CLI) | payer MEDICARE, MEDICAID | END 2021-10-22 10:27 | disposition home or self-care (01) | LOC: CSHWCC 10:26 | PROVIDERS: ATTEND Nurse Practitioner Family | DX: T81.30XD Disruption of wound, unspecified, subsequent encounter (principal); I87.2 Venous insufficiency (chronic) (peripheral); E11.621 Type 2 diabetes mellitus with foot ulcer; L97.412 Non-pressure chronic ulcer of right heel and midfoot with fat layer exposed; L97.422 Non-pressure chronic ulcer of left heel and midfoot with fat layer exposed; L97.512 Non-pressure chronic ulcer of other part of right foot with fat layer exposed; E11.40 Type 2 diabetes mellitus with diabetic neuropathy, unspecified; I89.0 Lymphedema, not elsewhere classified; R60.0 Localized edema; E78.2 Mixed hyperlipidemia; K46.9 Unspecified abdominal hernia without obstruction or gangrene; G89.4 Chronic pain syndrome; I10 Essential (primary) hypertension; W01.10XD Fall on same level from slipping, tripping and stumbling with subsequent striking against unspecified object, subsequent encounter ==

== ENCOUNTER 2021-10-28 14:39 | Outpatient (CLI) | payer MEDICARE, MEDICAID | END 2021-10-28 14:40 | disposition home or self-care (01) | LOC: CSHWCC 14:39 | PROVIDERS: ATTEND Nurse Practitioner Family | DX: T87.89 Other complications of amputation stump (principal); S61.001A Unspecified open wound of right thumb without damage to nail, initial encounter; R60.0 Localized edema ==

== ENCOUNTER 2021-11-11 14:32 | Outpatient (CLI) | payer MEDICARE, MEDICAID | END 2021-11-11 14:33 | disposition home or self-care (01) | LOC: CSHWCC 14:32 | PROVIDERS: ATTEND Nurse Practitioner Family | DX: T87.89 Other complications of amputation stump (principal); S61.001D Unspecified open wound of right thumb without damage to nail, subsequent encounter; Z89.412 Acquired absence of left great toe; Z89.411 Acquired absence of right great toe ==

== ENCOUNTER 2021-11-25 14:06 | Outpatient (CLI) | payer MEDICARE, MEDICAID | END 2021-11-25 14:07 | disposition home or self-care (01) | LOC: CSHWCC 14:06 | PROVIDERS: ATTEND Nurse Practitioner Family | DX: T87.89 Other complications of amputation stump (principal); R60.0 Localized edema | CPT/HCPCS: 11042; 97139; G0463; 99213 ==

== ENCOUNTER 2022-06-27 15:01 | Inpatient (IN) | payer MEDICAID, MEDICARE, OTHER ==
[2022-06-27 15:45] LABS: Bilirubin 1+ (Negative); Blood, Urine 10 (Negative); Clarity Cloudy (Clear); Glucose, Urine (Dipstick) Normal (Negative); Ketone, Urine 150 mg/dL (Negative); Leukocyte 25 (Negative); Nitrite Negative (Negative); Protein, Urine (Dipstick) 100 mg/dl (Neg-Trace); Specific Gravity, Urine 1.025 (1.005-1.030)
[2022-06-27 15:50] LABS: #Monocytes 0.9 10x3/uL (0.0-1.1); #Neutrophils 8.9 10x3/uL (1.5-8.4); %Basophils 0.2 % (0.0-2.0); %Eosinophils 0.1 % (0.0-6.0); %Lymphocytes 14.2 % (18.0-47.0); %Monocytes 7.8 % (0.0-10.0); %Neutrophils 77.4 % (40.0-75.0); Hemoglobin 16.7 g/dL (12.0-15.5); Mean Corpuscular HGB CONC 34.1 g/dL (32.0-36.0); Mean Corpuscular Volume 91.1 fl (81.6-98.3); Mean Platelet Volume 9.9 fl (7.4-10.4); Platelet Count 239 10x3/uL (150-450); RBC Distribution Width 13.9 % (11.5-14.5); Red Blood Cell (RBC) Count 5.38 10x6/uL (3.90-5.03); White Blood Cell (WBC) Count 11.5 10x3/uL (3.5-10.5)
[2022-06-27 15:52] LABS: Amphetamine Not Detected (NotDetected); Barbiturates Screen Not Detected (NotDetected); Benzodiazepine Screen Not Detected (NotDetected); Cocaine Metabolite Screen Not Detected (NotDetected); Methadone Not Detected (NotDetected); Methamphetamine Not Detected (NotDetected); Opiate Screen Detected (NotDetected); Oxycodone Screen Not Detected (NotDetected); Phencyclidine (PCP) Not Detected (NotDetected); THC/Cannabinoid Screen Not Detected (NotDetected); Tricyclic Screen Not Detected (NotDetected)
[2022-06-27 15:58] LABS: PTT 24.1 sec (22.0-33.0); Prothrombin Time 10.8 sec (9.5-12.1)
[2022-06-27 16:05] LABS: Acetaminophen Less than 10.0 mcg/mL (10.0-30.0); Alcohol Less than 10 mg/dL (Less than 10); CK (CPK) 63 U/L (29-168); Salicylate Less than 8.0 mg/dL (15.0-30.0)
[2022-06-27 16:24] LABS: Mucous/LPF 4+ LPF (<2+)
[2022-06-27 16:25] LABS: Bacteria/HPF 3+ HPF (None Seen)
[2022-06-27 16:28] LABS: CKMB 2.6 ng/mL (0-6.6)
[2022-06-27 16:46] LABS: ALT (SGPT) 10 U/L (8-55); AST (SGOT) 18 U/L (5-34); Albumin 3.4 g/dL (3.4-4.8); Alkaline Phosphatase 108 U/L (40-110); Anion Gap 16 mmol/L (10-20); BUN (Urea Nitrogen) 26 mg/dL (9.8-20.1); Bilirubin, Total 1.2 mg/dL (0.2-1.2); Calc. Creatinine Clearance 0 mL/min (70-130); Calcium 8.6 mg/dL (7.8-10.44); Carbon Dioxide 29 mmol/L (23-31); Chloride 98 mmol/L (98-107); Estimated GFR 95; Globulin 2.9 g/dL (2.4-3.5); Glucose 101 mg/dL (80-115); Magnesium 1.9 mg/dL (1.6-2.6); Potassium 3.2 mmol/L (3.5-5.1); Protein, Total 6.3 g/dL (5.8-8.1); Sodium 140 mmol/L (136-145)
[2022-06-27] MEDS ORDERED: Aspirin Chewable 81 MG TAB ONE (17:23)
[2022-06-27] MEDS ORDERED: Cefepime 2 GM VIAL ONE (17:23)
[2022-06-27] MEDS ORDERED: NS 0.9% w/ 40 MEQ KCL 1,000 ML IV ONE (17:23)
[2022-06-27 19:35] LABS: Lactic Acid 1.7 mmol/L (0.5-2.2)
[2022-06-27 19:39] LABS: SARS-CoV-2 NAA Rapid Test Not Detected (NotDetected)
[2022-06-27 19:46] LABS: Troponin I 0.099 ng/mL (< 0.028)
[2022-06-27] MEDS ORDERED: Ondansetron ODT 4 MG TAB PO PRN (21:27)
[2022-06-27] MEDS ORDERED: Ondansetron PF 4 MG/2 ML Vial IVP PRN (21:27)
[2022-06-27] MEDS ORDERED: Morphine 2 MG/ML VIAL SLOW IVP PRN (21:27)
[2022-06-27 22:18] VITALS: BMI 28.3
[2022-06-27] MEDS: Pantoprazole 40 MG VIAL IVP SCH (22:34)
[2022-06-27] MEDS: NS 0.9% w/ 20 MEQ KCL 1,000 ML/1,000 ML BAG IV SCH (22:34)
[2022-06-27] MEDS ORDERED: NS 0.9% w/ 20 MEQ KCL 1,000 ML ONE ×2 (22:37→22:38)
[2022-06-27 22:38] LABS: Magnesium 1.8 mg/dL (1.6-2.6)
[2022-06-27 22:42] LABS: Troponin I 0.096 ng/mL (< 0.028)
[2022-06-28] MEDS ORDERED: Melatonin 3 MG TAB PO SCH (00:30)
[2022-06-28] MEDS ORDERED: Lisinopril 10 MG TAB PO SCH (00:30)
[2022-06-28] MEDS: Morphine 4 MG/ML VIAL SLOW IVP PRN ×5 (00:32→21:17)
[2022-06-28] MEDS ORDERED: Sodium Chloride 0.9% 100 ML ONE (05:10)
[2022-06-28] MEDS: cefTRIAXone\\ROCEPHIN 1 GM in Sodium Chloride 0.9% 100 ML IVPB SCH (05:28)
[2022-06-28 05:59] LABS: #Monocytes 0.7 10x3/uL (0.0-1.1); #Neutrophils 7.4 10x3/uL (1.5-8.4); %Basophils 0.2 % (0.0-2.0); %Eosinophils 0.1 % (0.0-6.0); %Lymphocytes 15.1 % (18.0-47.0); %Monocytes 7.2 % (0.0-10.0); %Neutrophils 77.1 % (40.0-75.0); Hemoglobin 14.4 g/dL (12.0-15.5); Mean Corpuscular HGB CONC 33.6 g/dL (32.0-36.0); Mean Corpuscular Hemoglobin 31.2 pg (27.0-33.0); Mean Corpuscular Volume 92.6 fl (81.6-98.3); Mean Platelet Volume 9.9 fl (7.4-10.4); Platelet Count 208 10x3/uL (150-450); RBC Distribution Width 13.8 % (11.5-14.5); Red Blood Cell (RBC) Count 4.62 10x6/uL (3.90-5.03); White Blood Cell (WBC) Count 9.6 10x3/uL (3.5-10.5)
[2022-06-28 06:20] LABS: Anion Gap 14 mmol/L (10-20); BUN (Urea Nitrogen) 20 mg/dL (9.8-20.1); Calc. Creatinine Clearance 98 mL/min (70-130); Carbon Dioxide 20 mmol/L (23-31); Chloride 109 mmol/L (98-107); Estimated GFR 97; Glucose 87 mg/dL (80-115); Potassium 3.7 mmol/L (3.5-5.1); Sodium 139 mmol/L (136-145)
[2022-06-28] MEDS: Pantoprazole 40 MG VIAL IVP SCH ×2 (09:04→21:22)
[2022-06-28] MEDS ORDERED: Labetalol HCl 100 MG/20 ML VIAL SLOW IVP PRN (10:14)
[2022-06-28] MEDS ORDERED: diphenhydrAMINE 50 MG/ML VIAL IVP PRN (10:14)
[2022-06-28] MEDS ORDERED: Artificial Tear Sol 15 ML BOT EA EYE PRN (10:14)
[2022-06-28] MEDS ORDERED: hydrALAZINE 20 MG/ML VIAL SLOW IVP PRN (10:14)
[2022-06-28] MEDS ORDERED: Moisturizing Cream (Eucerin) 113 GM JAR TOP PRN (10:14)
[2022-06-28] MEDS ORDERED: Electrolyte Replacement Protocol 1 EACH FS SCH (10:30)
[2022-06-28] MEDS ORDERED: Magnesium 2 GM/50 ML(in water) 2 GM in Premix Bag 1 BAG IVPB SCH ×2 (11:00→15:45)
[2022-06-28] MEDS ORDERED: Succinylcholine 200 MG/10 ml SYRINGE FS ONE (11:11)
[2022-06-28] MEDS ORDERED: PROPOFOL 20 ML ONE (11:11)
[2022-06-28] MEDS ORDERED: Fentanyl 100 MCG/2 ML VIAL ONE (11:13)
[2022-06-28] MEDS ORDERED: Rocuronium Bromide 10 MG/ML (10ML VIAL) ONE (11:28)
[2022-06-28] MEDS ORDERED: Glycopyrrolate 0.2 MG/ML 5 ML SYRINGE ONE (12:01)
[2022-06-28] MEDS: NS 0.9% w/ 20 MEQ KCL 1,000 ML/1,000 ML BAG IV SCH (15:59)
[2022-06-28] MEDS ORDERED: Dextrose 50% Abboject 50 ML SYRINGE SLOW IVP SCH (20:45)
[2022-06-28] MEDS ORDERED: HYDROmorphone 0.5 MG/0.5 ML SYRINGE SLOW IVP SCH (23:30)
[2022-06-29] MEDS: NS 0.9% w/ 20 MEQ KCL 1,000 ML/1,000 ML BAG IV SCH ×2 (00:39→02:16)
[2022-06-29] MEDS: Morphine 4 MG/ML VIAL SLOW IVP PRN ×5 (03:19→21:18)
[2022-06-29] MEDS: D5 0.9% NS w/ 20 mEq KCl 1,000 ML IV SCH ×2 (05:23→21:21)
[2022-06-29] MEDS: cefTRIAXone\\ROCEPHIN 1 GM in Sodium Chloride 0.9% 100 ML IVPB SCH (05:23)
[2022-06-29 06:02] LABS: #Basophils 0.1 10x3/uL (0.0-0.2); #Eosinphils 0.1 10x3/uL (0.0-0.5); #Monocytes 0.9 10x3/uL (0.0-1.1); #Neutrophils 7.4 10x3/uL (1.5-8.4); %Basophils 0.7 % (0.0-2.0); %Eosinophils 0.9 % (0.0-6.0); %Lymphocytes 19.8 % (18.0-47.0); %Monocytes 8.6 % (0.0-10.0); %Neutrophils 69.8 % (40.0-75.0); Hemoglobin 13.6 g/dL (12.0-15.5); Mean Corpuscular HGB CONC 33.7 g/dL (32.0-36.0); Mean Corpuscular Hemoglobin 31.5 pg (27.0-33.0); Mean Corpuscular Volume 93.3 fl (81.6-98.3); Mean Platelet Volume 9.9 fl (7.4-10.4); Platelet Count 212 10x3/uL (150-450); RBC Distribution Width 13.7 % (11.5-14.5); Red Blood Cell (RBC) Count 4.32 10x6/uL (3.90-5.03); White Blood Cell (WBC) Count 10.6 10x3/uL (3.5-10.5)
[2022-06-29 06:35] LABS: Anion Gap 16 mmol/L (10-20); BUN (Urea Nitrogen) 11 mg/dL (9.8-20.1); Calc. Creatinine Clearance 101 mL/min (70-130); Calcium 7.9 mg/dL (7.8-10.44); Carbon Dioxide 18 mmol/L (23-31); Chloride 111 mmol/L (98-107); Estimated GFR 98; Glucose 64 mg/dL (80-115); Lipase 22 U/L (8-78); Potassium 3.3 mmol/L (3.5-5.1); Sodium 142 mmol/L (136-145)
[2022-06-29] MEDS ORDERED: Lidocaine 4% Topical Sol 50 ML BOT ONE (06:41)
[2022-06-29] MEDS ORDERED: Ondansetron PF 4 MG/2 ML Vial ONE ×2 (06:47→11:51)
[2022-06-29] MEDS ORDERED: PROPOFOL 0 ML ONE (06:47)
[2022-06-29] MEDS ORDERED: Rocuronium Bromide 10 MG/ML (10ML VIAL) ONE ×2 (06:47→11:51)
[2022-06-29] MEDS ORDERED: Glycopyrrolate 0.2 MG/ML 5 ML SYRINGE ONE (06:47)
[2022-06-29] MEDS ORDERED: Ketorolac Tromethamine 30 MG/ML VIAL ONE (06:47)
[2022-06-29] MEDS ORDERED: Dexamethasone 4 mg/ml Vial ONE ×2 (06:47→11:51)
[2022-06-29] MEDS ORDERED: Fentanyl 250 MCG/5 ML VIAL ONE (06:47)
[2022-06-29] MEDS ORDERED: Midazolam HCl 2 mg/2 ml Vial ONE (06:47)
[2022-06-29] MEDS ORDERED: Lidocaine 1% PF 5 ML VIAL ONE (06:47)
[2022-06-29] MEDS ORDERED: Potassium Chloride 20 MEQ in Premix Bag 1 BAG IVPB SCH (08:00)
[2022-06-29] MEDS ORDERED: Magnesium 2 GM/50 ML(in water) 2 GM in Premix Bag 1 BAG IVPB SCH (08:00)
[2022-06-29] MEDS: Pantoprazole 40 MG VIAL IVP SCH ×2 (09:18→21:20)
[2022-06-29] MEDS ORDERED: Potassium Phosphate 15 MMOL, Admixture Fee 1 EACH in Sodium Chloride 0.9% 100 ML IVPB SCH (11:00)
[2022-06-29] MEDS ORDERED: Bupivacaine 0.25% HCL 30 ML VIAL ONE (11:22)
[2022-06-29] MEDS ORDERED: EPINEPHrine 1 MG/ML AMP ONE (11:42)
[2022-06-29] MEDS ORDERED: Fentanyl 100 MCG/2 ML VIAL ONE ×4 (11:51→14:59)
[2022-06-29] MEDS ORDERED: PROPOFOL 20 ML ONE (11:51)
[2022-06-29] MEDS ORDERED: Lidocaine 2% PF 5 ML VIAL ONE (11:55)
[2022-06-29] MEDS ORDERED: Dexmedetomidine 200 MCG/2 ML VIAL ONE (12:19)
[2022-06-29] MEDS ORDERED: Sodium Chloride 0.9% 20 ML ONE (12:33)
[2022-06-29] MEDS ORDERED: PHENYLEPHRINE-NS 100 MCG/ML 10 ML SYRINGE ONE (12:35)
[2022-06-29] MEDS ORDERED: ePHEDrine Sulfate 50 MG/10 ML VIAL ONE (12:44)
[2022-06-29] MEDS ORDERED: Metoprolol Tartrate 5 MG/5 ML VIAL ONE (14:17)
[2022-06-29] MEDS ORDERED: SUGAMMADEX SODIUM 200 MG/2 ML VIAL ONE (14:50)
[2022-06-29 21:52] LABS: Potassium 3.9 mmol/L (3.5-5.1)
[2022-06-30] MEDS: HYDROcodone/Acetaminophen 5/325 mg Tablet PO PRN ×2 (00:20→16:12)
[2022-06-30] MEDS: Morphine 4 MG/ML VIAL SLOW IVP PRN ×3 (02:04→10:33)
[2022-06-30] MEDS: cefTRIAXone\\ROCEPHIN 1 GM in Sodium Chloride 0.9% 100 ML IVPB SCH (06:09)
[2022-06-30 06:31] LABS: Magnesium 2.1 mg/dL (1.6-2.6); Phosphorus 2.3 mg/dL (2.3-4.7)
[2022-06-30 08:16] LABS: #Monocytes 0.7 10x3/uL (0.0-1.1); #Neutrophils 7.5 10x3/uL (1.5-8.4); %Basophils 0.1 % (0.0-2.0); %Eosinophils 0.1 % (0.0-6.0); %Lymphocytes 15.7 % (18.0-47.0); %Monocytes 7.2 % (0.0-10.0); %Neutrophils 76.5 % (40.0-75.0); Hemoglobin 13.1 g/dL (12.0-15.5); Mean Corpuscular HGB CONC 34.7 g/dL (32.0-36.0); Mean Corpuscular Hemoglobin 31.8 pg (27.0-33.0); Mean Corpuscular Volume 91.7 fl (81.6-98.3); Mean Platelet Volume 10.2 fl (7.4-10.4); Platelet Count 188 10x3/uL (150-450); RBC Distribution Width 13.4 % (11.5-14.5); Red Blood Cell (RBC) Count 4.12 10x6/uL (3.90-5.03); White Blood Cell (WBC) Count 9.8 10x3/uL (3.5-10.5)
[2022-06-30 08:28] LABS: Anion Gap 12 mmol/L (10-20); BUN (Urea Nitrogen) 8 mg/dL (9.8-20.1); Calc. Creatinine Clearance 104 mL/min (70-130); Calcium 7.8 mg/dL (7.8-10.44); Carbon Dioxide 22 mmol/L (23-31); Chloride 107 mmol/L (98-107); Estimated GFR 98; Glucose 126 mg/dL (80-115); Potassium 3.8 mmol/L (3.5-5.1); Sodium 137 mmol/L (136-145)
[2022-06-30] MEDS: Pantoprazole 40 MG VIAL IVP SCH (10:33)
[2022-06-30] MEDS: D5 0.9% NS w/ 20 mEq KCl 1,000 ML IV SCH (10:34)
[2022-06-30 16:59] VITALS: BP 169/88; TEMP 97.3
== END 2022-06-30 21:20 | disposition home or self-care (01) | DRG 326 ==
LOC: CSHERS 15:01 → CSHTELE 20:09 → OBSVTOIN 21:27
PROVIDERS: ADMIT Family Medicine; ATTEND Internal Medicine
PROC: 0DJ08ZZ Inspection of Upper Intestinal Tract, Via Natural or Artificial Opening Endoscopic (ICD-10-PCS; 2022-06-28)
PROC: 0D9680Z Drainage of Stomach with Drainage Device, Via Natural or Artificial Opening Endoscopic (ICD-10-PCS; 2022-06-28)
PROC: 0BQT4ZZ Repair Diaphragm, Percutaneous Endoscopic Approach (ICD-10-PCS; principal; 2022-06-29)
PROC: 0DQ64ZZ Repair Stomach, Percutaneous Endoscopic Approach (ICD-10-PCS; 2022-06-29)
PROC: 0WQF4ZZ Repair Abdominal Wall, Percutaneous Endoscopic Approach (ICD-10-PCS; 2022-06-29)
DX: K31.89 Other diseases of stomach and duodenum (principal); G92.8 Other toxic encephalopathy; E87.2 Acidosis; K22.10 Ulcer of esophagus without bleeding; K92.0 Hematemesis; Z20.822 Contact with and (suspected) exposure to COVID-19; E86.0 Dehydration; T40.2X5A Adverse effect of other opioids, initial encounter; E87.6 Hypokalemia; R79.89 Other specified abnormal findings of blood chemistry; I10 Essential (primary) hypertension; E89.0 Postprocedural hypothyroidism; Z60.2 Problems related to living alone; K44.9 Diaphragmatic hernia without obstruction or gangrene; M06.9 Rheumatoid arthritis, unspecified; M79.7 Fibromyalgia; R82.81 Pyuria; E11.42 Type 2 diabetes mellitus with diabetic polyneuropathy; G89.29 Other chronic pain; F17.210 Nicotine dependence, cigarettes, uncomplicated; K42.9 Umbilical hernia without obstruction or gangrene; J44.9 Chronic obstructive pulmonary disease, unspecified; Z90.710 Acquired absence of both cervix and uterus; Z90.49 Acquired absence of other specified parts of digestive tract; Z80.52 Family history of malignant neoplasm of bladder; Z88.6 Allergy status to analgesic agent; Z79.899 Other long term (current) drug therapy; Z78.1 Physical restraint status; Z88.8 Allergy status to other drugs, medicaments and biological substances; Z89.412 Acquired absence of left great toe; Z89.411 Acquired absence of right great toe; Z89.421 Acquired absence of other right toe(s); R10.9 Unspecified abdominal pain
CPT/HCPCS: 36415; 36416; 51701; 70450; 71045; 72125; 74177; 80048; 80053; 80306; 80307; 81003; 81015; 82550; 82553; 83605; 83690; 83735; 84100; 84443; 84484; 85025; 85610; 85730; 87086; 93005; 93010; 94760; 96361; 96365; 96368; C9113; G0378; J0171; J0692; J0696; J1100; J1170; J1885; J2001; J2250; J2270; J2405; J2704; J3010; J3370; J3475; J3480; J3490; J7999; Q9967; S0020

== ENCOUNTER 2022-10-05 02:01 | Inpatient (IN) | payer MEDICARE, MEDICAID ==
[2022-10-05] MEDS ORDERED: Dextrose 50% Abboject 50 ML SYRINGE SLOW IVP PRN (03:02)
[2022-10-05] MEDS ORDERED: Acetaminophen 325 MG TAB PO PRN (03:02)
[2022-10-05] MEDS ORDERED: Senokot S 8.6-50 MG TAB PO PRN (03:02)
[2022-10-05] MEDS ORDERED: HYDROcodone/Acetaminophen 5/325 mg Tablet PO PRN (03:02)
[2022-10-05] MEDS ORDERED: Guaifenesin DM 100-10/5 ML UDCUP PO PRN (03:02)
[2022-10-05] MEDS ORDERED: HumaLOG 300 UNITS/3 ML VIAL SC PRN (03:02)
[2022-10-05] MEDS ORDERED: Dextrose 5% in Water 1,000 ML IV PRN (03:02)
[2022-10-05] MEDS ORDERED: Ondansetron PF 4 MG/2 ML Vial IVP PRN (03:02)
[2022-10-05] MEDS ORDERED: Calcium Carbonate 500 MG ChewTAB PO PRN (03:02)
[2022-10-05] MEDS ORDERED: Ipratropium/Albuterol 3 ML NEB NEB PRN (03:20)
[2022-10-05] MEDS: HYDROcodone/Acetaminophen 5/325 mg Tablet PO PRN ×4 (05:02→20:29)
[2022-10-05] MEDS: Lactated Ringer's 1,000 ML IV SCH ×2 (05:03→14:47)
[2022-10-05 06:29] VITALS: BMI 23.3
[2022-10-05] MEDS: Mometasone/Formoterol 60 PUFF AER INH SCH ×2 (07:22→20:43)
[2022-10-05 08:12] LABS: #Eosinphils 0.3 10x3/uL (0.0-0.5); #Monocytes 0.6 10x3/uL (0.0-1.1); #Neutrophils 5.5 10x3/uL (1.5-8.4); %Basophils 0.5 % (0.0-2.0); %Eosinophils 3.3 % (0.0-6.0); %Lymphocytes 21.1 % (18.0-47.0); %Monocytes 6.8 % (0.0-10.0); %Neutrophils 68.1 % (40.0-75.0); Mean Corpuscular HGB CONC 34.1 g/dL (32.0-36.0); Mean Corpuscular Hemoglobin 31.1 pg (27.0-33.0); Mean Corpuscular Volume 91.1 fl (81.6-98.3); Mean Platelet Volume 9.6 fl (7.4-10.4); Platelet Count 185 10x3/uL (150-450); Red Blood Cell (RBC) Count 4.18 10x6/uL (3.90-5.03); White Blood Cell (WBC) Count 8.1 10x3/uL (3.5-10.5)
[2022-10-05 08:16] LABS: Anion Gap 11 mmol/L (10-20); BUN (Urea Nitrogen) 6 mg/dL (9.8-20.1); Calc. Creatinine Clearance 83 mL/min (70-130); Carbon Dioxide 28 mmol/L (23-31); Chloride 102 mmol/L (98-107); Estimated GFR 97; Glucose 93 mg/dL (80-115); Potassium 3.7 mmol/L (3.5-5.1); Sodium 137 mmol/L (136-145)
[2022-10-05] MEDS: Cefepime 1 GM in Sodium Chloride 0.9% 100 ML IVPB SCH ×2 (08:50→20:27)
[2022-10-05] MEDS: Aspirin 81 mg Enteric Coated Tablet PO SCH (08:56)
[2022-10-05] MEDS: Gabapentin 300 MG CAP PO SCH ×3 (08:56→20:28)
[2022-10-05] MEDS: Lisinopril 10 MG TAB PO SCH (08:56)
[2022-10-05] MEDS ORDERED: Magnevist 469MG/ML 20 ML VIAL ONE (09:19)
[2022-10-05] MEDS ORDERED: Vancomycin 1 GM in Premix Bag 1 BAG IVPB SCH (11:00)
[2022-10-05] MEDS: Vancomycin HCl 750 MG in Sodium Chloride 0.9% 250 ML 250 ML IVPB SCH ×2 (12:17→23:24)
[2022-10-06] MEDS: HYDROcodone/Acetaminophen 5/325 mg Tablet PO PRN ×4 (00:54→23:31)
[2022-10-06 04:52] LABS: #Eosinphils 0.2 10x3/uL (0.0-0.5); #Monocytes 0.3 10x3/uL (0.0-1.1); #Neutrophils 4.2 10x3/uL (1.5-8.4); %Basophils 0.5 % (0.0-2.0); %Eosinophils 3.7 % (0.0-6.0); %Lymphocytes 22.3 % (18.0-47.0); %Monocytes 5.5 % (0.0-10.0); %Neutrophils 67.7 % (40.0-75.0); Hemoglobin 12.3 g/dL (12.0-15.5); Mean Corpuscular HGB CONC 33.3 g/dL (32.0-36.0); Mean Corpuscular Hemoglobin 30.9 pg (27.0-33.0); Mean Corpuscular Volume 92.7 fl (81.6-98.3); Mean Platelet Volume 9.6 fl (7.4-10.4); Platelet Count 170 10x3/uL (150-450); RBC Distribution Width 14.2 % (11.5-14.5); Red Blood Cell (RBC) Count 3.98 10x6/uL (3.90-5.03); White Blood Cell (WBC) Count 6.2 10x3/uL (3.5-10.5)
[2022-10-06 05:01] LABS: Anion Gap 12 mmol/L (10-20); BUN (Urea Nitrogen) 9 mg/dL (9.8-20.1); Calc. Creatinine Clearance 82 mL/min (70-130); Calcium 8.5 mg/dL (7.8-10.44); Carbon Dioxide 24 mmol/L (23-31); Chloride 107 mmol/L (98-107); Estimated GFR 96; Glucose 96 mg/dL (80-115); Sodium 139 mmol/L (136-145)
[2022-10-06] MEDS: Gabapentin 300 MG CAP PO SCH ×3 (06:16→21:36)
[2022-10-06] MEDS: Lisinopril 10 MG TAB PO SCH (06:19)
[2022-10-06] MEDS: Aspirin 81 mg Enteric Coated Tablet PO SCH (06:19)
[2022-10-06 06:48] LABS: SARS-CoV-2 NAA Rapid Test Not Detected (NotDetected)
[2022-10-06] MEDS: Lactated Ringer's 1,000 ML IV SCH (07:04)
[2022-10-06] MEDS: Cefepime 1 GM in Sodium Chloride 0.9% 100 ML IVPB SCH ×2 (07:04→21:35)
[2022-10-06] MEDS: Mometasone/Formoterol 60 PUFF AER INH SCH ×2 (07:45→15:20)
[2022-10-06] MEDS: Vancomycin HCl 750 MG in Sodium Chloride 0.9% 250 ML 250 ML IVPB SCH (09:51)
[2022-10-06] MEDS ORDERED: Bupivacaine PF 0.5% 30 ML VIAL ONE (10:15)
[2022-10-06 10:41] LABS: Vancomycin, Trough 12.3 ug/mL
[2022-10-06] MEDS ORDERED: Fentanyl 100 MCG/2 ML VIAL ONE (11:43)
[2022-10-06] MEDS ORDERED: Lidocaine 1% PF 5 ML VIAL ONE (11:43)
[2022-10-06] MEDS ORDERED: PROPOFOL 20 ML ONE (11:43)
[2022-10-06] MEDS ORDERED: ePHEDrine Sulfate 50 MG/10 ML VIAL ONE (12:06)
[2022-10-06] MEDS ORDERED: Ondansetron PF 4 MG/2 ML Vial ONE (12:08)
[2022-10-06 13:55] LABS: Hemoglobin A1c 5.1 % (4.0-6.0)
[2022-10-06] MEDS: Morphine 4 MG/ML VIAL SLOW IVP PRN ×2 (16:45→21:41)
[2022-10-06 22:29] LABS: Vancomycin, Trough 10.3 ug/mL
[2022-10-07] MEDS: Lactated Ringer's 1,000 ML IV SCH (03:20)
[2022-10-07] MEDS: HYDROcodone/Acetaminophen 5/325 mg Tablet PO PRN ×2 (04:25→09:26)
[2022-10-07] MEDS: Mometasone/Formoterol 60 PUFF AER INH SCH (07:38)
[2022-10-07] MEDS ORDERED: Cefepime 2 GM in Sodium Chloride 0.9% 100 ML IVPB SCH (09:00)
[2022-10-07] MEDS: Morphine 4 MG/ML VIAL SLOW IVP PRN (09:13)
[2022-10-07] MEDS: Gabapentin 300 MG CAP PO SCH (09:27)
[2022-10-07] MEDS: Lisinopril 10 MG TAB PO SCH (09:27)
[2022-10-07] MEDS: Aspirin 81 mg Enteric Coated Tablet PO SCH (09:27)
[2022-10-07 14:25] VITALS: BP 118/63; TEMP 98.5
== END 2022-10-07 12:44 | disposition home or self-care (01) | DRG 617 ==
LOC: CSHERS 02:01 → CSHTELE 02:42
PROVIDERS: ADMIT Student in an Organized Health Care Education/Training Program; ATTEND Family Medicine
PROC: 0Y6N0ZB Detachment at Left Foot, Partial 2nd Ray, Open Approach (ICD-10-PCS; principal; 2022-10-06)
DX: E11.69 Type 2 diabetes mellitus with other specified complication (principal); L03.116 Cellulitis of left lower limb; M86.8X7 Other osteomyelitis, ankle and foot; T81.49XA Infection following a procedure, other surgical site, initial encounter; I10 Essential (primary) hypertension; E11.51 Type 2 diabetes mellitus with diabetic peripheral angiopathy without gangrene; E11.42 Type 2 diabetes mellitus with diabetic polyneuropathy; J45.909 Unspecified asthma, uncomplicated; E11.628 Type 2 diabetes mellitus with other skin complications; F17.210 Nicotine dependence, cigarettes, uncomplicated; Z89.422 Acquired absence of other left toe(s); Z98.890 Other specified postprocedural states; Z95.820 Peripheral vascular angioplasty status with implants and grafts; Z88.5 Allergy status to narcotic agent; Z90.49 Acquired absence of other specified parts of digestive tract; Z90.710 Acquired absence of both cervix and uterus; Z80.52 Family history of malignant neoplasm of bladder; Z79.899 Other long term (current) drug therapy; Z20.822 Contact with and (suspected) exposure to COVID-19
CPT/HCPCS: 36415; 36416; 80048; 80053; 80202; 81003; 83036; 83605; 85025; 86140; 87040; 87070; 87077; 87149; 87186; 87205; 93923; 94664; 94760; 96374; 96375; 97139; 99284; A9579; J0692; J1650; J2270; J2405; J2543; J2704; J3010; J3370; J3370-JW; J3490; J7050; J7120; S0020; U0002

== ENCOUNTER 2022-10-14 12:28 | Outpatient (CLI) | payer MEDICARE, MEDICAID | END 2022-10-14 12:29 | disposition home or self-care (01) | LOC: CSHWCC 12:28 | PROVIDERS: ATTEND Nurse Practitioner Family | DX: T81.89XD Other complications of procedures, not elsewhere classified, subsequent encounter (principal); R60.0 Localized edema; Z89.412 Acquired absence of left great toe | CPT/HCPCS: 29581; 87070; 87077; 87186; 87205; 99212; G0463 ==

== ENCOUNTER 2022-10-17 16:50 | Inpatient (IN) | payer MEDICARE, MEDICAID ==
[2022-10-17 18:43] LABS: #Eosinphils 0.3 10x3/uL (0.0-0.5); #Monocytes 0.4 10x3/uL (0.0-1.1); #Neutrophils 4.5 10x3/uL (1.5-8.4); %Basophils 0.5 % (0.0-2.0); %Eosinophils 3.5 % (0.0-6.0); %Lymphocytes 32.1 % (18.0-47.0); %Monocytes 5.7 % (0.0-10.0); %Neutrophils 57.9 % (40.0-75.0); Hemoglobin 14.2 g/dL (12.0-15.5); Mean Corpuscular HGB CONC 33.9 g/dL (32.0-36.0); Mean Corpuscular Hemoglobin 31.1 pg (27.0-33.0); Mean Corpuscular Volume 91.9 fl (81.6-98.3); Mean Platelet Volume 9.2 fl (7.4-10.4); Platelet Count 316 10x3/uL (150-450); Red Blood Cell (RBC) Count 4.56 10x6/uL (3.90-5.03); White Blood Cell (WBC) Count 7.8 10x3/uL (3.5-10.5)
[2022-10-17 19:11] LABS: ALT (SGPT) 13 U/L (8-55); AST (SGOT) 21 U/L (5-34); Albumin 3.7 g/dL (3.4-4.8); Alkaline Phosphatase 132 U/L (40-110); Anion Gap 10 mmol/L (10-20); BUN (Urea Nitrogen) 10 mg/dL (9.8-20.1); Bilirubin, Total 0.3 mg/dL (0.2-1.2); Calc. Creatinine Clearance 0 mL/min (70-130); Calcium 9.7 mg/dL (7.8-10.44); Carbon Dioxide 31 mmol/L (23-31); Chloride 100 mmol/L (98-107); Estimated GFR 91; Globulin 4.2 g/dL (2.4-3.5); Glucose 98 mg/dL (80-115); Potassium 4.3 mmol/L (3.5-5.1); Protein, Total 7.9 g/dL (5.8-8.1); Sodium 137 mmol/L (136-145)
[2022-10-17] MEDS ORDERED: Ondansetron PF 4 MG/2 ML Vial ONE (19:25)
[2022-10-17] MEDS ORDERED: Morphine 4 MG/ML VIAL ONE (19:25)
[2022-10-17] MEDS ORDERED: Cefepime 2 GM VIAL ONE (19:43)
[2022-10-17] MEDS ORDERED: Senokot S 8.6-50 MG TAB PO PRN (20:03)
[2022-10-17] MEDS ORDERED: Ondansetron PF 4 MG/2 ML Vial IVP PRN (20:03)
[2022-10-17] MEDS ORDERED: Calcium Carbonate 500 MG ChewTAB PO PRN (20:03)
[2022-10-17] MEDS ORDERED: Acetaminophen 325 MG TAB PO PRN (20:03)
[2022-10-17] MEDS ORDERED: Guaifenesin DM 100-10/5 ML UDCUP PO PRN (20:03)
[2022-10-17] MEDS ORDERED: Pharmacy to Dose ABX/VANCOMYCIN IVPB PRN (20:12)
[2022-10-17] MEDS ORDERED: Ipratropium/Albuterol 3 ML NEB NEB PRN (20:21)
[2022-10-17] MEDS ORDERED: Vancomycin 1 GM VIAL ONE (20:34)
[2022-10-17 22:57] VITALS: BMI 23.0
[2022-10-17] MEDS ORDERED: Gabapentin 300 MG CAP PO SCH (23:00)
[2022-10-17] MEDS ORDERED: Atorvastatin Calcium 10 MG TAB PO SCH (23:00)
[2022-10-17] MEDS: HYDROcodone/Acetaminophen 5/325 mg Tablet PO PRN (23:24)
[2022-10-17] MEDS: Lactated Ringer's 1,000 ML IV SCH (23:25)
[2022-10-18] MEDS: Nicotine 14 MG PATCH TOP PRN (00:51)
[2022-10-18] MEDS: HYDROcodone/Acetaminophen 5/325 mg Tablet PO PRN ×4 (05:04→21:39)
[2022-10-18 06:25] LABS: Anion Gap 9 mmol/L (10-20); BUN (Urea Nitrogen) 8 mg/dL (9.8-20.1); Calc. Creatinine Clearance 75 mL/min (70-130); Calcium 8.8 mg/dL (7.8-10.44); Carbon Dioxide 30 mmol/L (23-31); Cardiac Risk 2.9 (Less than 4.5); Chloride 104 mmol/L (98-107); Cholesterol 109 mg/dl (< 200 Desired); Estimated GFR 96; Glucose 107 mg/dL (80-115); HDL Cholesterol 38 mg/dL (>60 Neg Risk); LDL Cholesterol, Calculated 49 mg/dL; Potassium 4.1 mmol/L (3.5-5.1); Sodium 139 mmol/L (136-145); Triglycerides 111 mg/dL (Less than 150)
[2022-10-18] MEDS: Mometasone/Formoterol 200/5 60 PUFF INH SCH ×2 (07:01→19:14)
[2022-10-18] MEDS: Lisinopril 10 MG TAB PO SCH (09:14)
[2022-10-18] MEDS: Cefepime 1 GM in Sodium Chloride 0.9% 100 ML IVPB SCH ×2 (09:14→21:34)
[2022-10-18] MEDS: Vancomycin HCl 750 MG in Sodium Chloride 0.9% 250 ML 250 ML IVPB SCH ×2 (09:14→22:00)
[2022-10-18] MEDS: Gabapentin 300 MG CAP PO SCH ×3 (09:14→21:37)
[2022-10-18] MEDS: Aspirin 81 mg Enteric Coated Tablet PO SCH (09:15)
[2022-10-18] MEDS: Lactated Ringer's 1,000 ML IV SCH (13:35)
[2022-10-18] MEDS: Atorvastatin Calcium 10 MG TAB PO SCH (21:37)
[2022-10-19] MEDS: HYDROcodone/Acetaminophen 5/325 mg Tablet PO PRN ×4 (03:24→20:09)
[2022-10-19] MEDS: Lactated Ringer's 1,000 ML IV SCH ×2 (04:59→15:52)
[2022-10-19] MEDS: Mometasone/Formoterol 200/5 60 PUFF INH SCH ×2 (07:10→20:40)
[2022-10-19 09:28] LABS: Vancomycin, Trough 14.3 ug/mL
[2022-10-19] MEDS: Aspirin 81 mg Enteric Coated Tablet PO SCH (10:15)
[2022-10-19] MEDS: Cefepime 1 GM in Sodium Chloride 0.9% 100 ML IVPB SCH ×2 (10:16→20:10)
[2022-10-19] MEDS: Gabapentin 300 MG CAP PO SCH ×3 (10:16→20:06)
[2022-10-19] MEDS: Vancomycin HCl 750 MG in Sodium Chloride 0.9% 250 ML 250 ML IVPB SCH ×2 (10:16→21:58)
[2022-10-19] MEDS: Lisinopril 10 MG TAB PO SCH (10:17)
[2022-10-19] MEDS ORDERED: Lidocaine 1% PF 5 ML VIAL ONE (13:39)
[2022-10-19] MEDS ORDERED: Sodium Bicarbonate 2.5 MEQ/5 ML VIAL ONE (13:40)
[2022-10-19] MEDS: Atorvastatin Calcium 10 MG TAB PO SCH (20:06)
[2022-10-19] MEDS: Nicotine 14 MG PATCH TOP PRN (20:21)
[2022-10-20] MEDS: HYDROcodone/Acetaminophen 5/325 mg Tablet PO PRN ×3 (02:02→14:44)
[2022-10-20] MEDS: Lactated Ringer's 1,000 ML IV SCH (05:00)
[2022-10-20] MEDS: Cefepime 1 GM in Sodium Chloride 0.9% 100 ML IVPB SCH (08:33)
[2022-10-20] MEDS: Aspirin 81 mg Enteric Coated Tablet PO SCH (08:34)
[2022-10-20] MEDS: Gabapentin 300 MG CAP PO SCH ×2 (08:34→15:34)
[2022-10-20] MEDS: Lisinopril 10 MG TAB PO SCH (08:35)
[2022-10-20 08:50] LABS: Vancomycin, Trough 15.8 ug/mL
[2022-10-20] MEDS: Vancomycin HCl 750 MG in Sodium Chloride 0.9% 250 ML 250 ML IVPB SCH (09:30)
[2022-10-20] MEDS: Mometasone/Formoterol 200/5 60 PUFF INH SCH (10:40)
[2022-10-20] MEDS ORDERED: CEFAZOLIN 2 GM in Sodium Chloride 0.9% 100 ML IVPB SCH (14:00)
[2022-10-20 17:28] VITALS: BP 146/87; TEMP 98.3
== END 2022-10-20 18:00 | disposition home or self-care (01) | DRG 638 ==
LOC: CSHERS 16:50 → CSHTELE 22:48 → INTOOBSV 22:48 → OBSVTOIN 10-20 15:04
PROVIDERS: ADMIT Student in an Organized Health Care Education/Training Program; ATTEND Internal Medicine
PROC: 02HV33Z Insertion of Infusion Device into Superior Vena Cava, Percutaneous Approach (ICD-10-PCS; principal; 2022-10-19)
PROC: B5181ZA Fluoroscopy of Superior Vena Cava using Low Osmolar Contrast, Guidance (ICD-10-PCS; 2022-10-19)
PROC: B548ZZA Ultrasonography of Superior Vena Cava, Guidance (ICD-10-PCS; 2022-10-19)
DX: E11.69 Type 2 diabetes mellitus with other specified complication (principal); L03.116 Cellulitis of left lower limb; T81.42XA Infection following a procedure, deep incisional surgical site, initial encounter; R78.81 Bacteremia; M86.8X7 Other osteomyelitis, ankle and foot; I10 Essential (primary) hypertension; E11.51 Type 2 diabetes mellitus with diabetic peripheral angiopathy without gangrene; F17.210 Nicotine dependence, cigarettes, uncomplicated; J44.9 Chronic obstructive pulmonary disease, unspecified; E11.42 Type 2 diabetes mellitus with diabetic polyneuropathy; A49.02 Methicillin resistant Staphylococcus aureus infection, unspecified site; E11.628 Type 2 diabetes mellitus with other skin complications; Y83.8 Other surgical procedures as the cause of abnormal reaction of the patient, or of later complication, without mention of misadventure at the time of the procedure; Z88.5 Allergy status to narcotic agent; Z79.899 Other long term (current) drug therapy; Z90.49 Acquired absence of other specified parts of digestive tract; Z90.710 Acquired absence of both cervix and uterus
CPT/HCPCS: 36415; 36569; 80048; 80053; 80061; 80202; 82565; 83605; 84520; 85025; 87040; 87070; 87077; 87081; 87186; 87205; 97139; C1751; J0692; J1650; J2270; J2405; J3370; J3490; J7050; J7120

== ENCOUNTER 2022-10-26 14:41 | Outpatient (CLI) | payer MEDICARE, MEDICAID | END 2022-10-26 14:42 | disposition home or self-care (01) | LOC: CSHWCC 14:41 | PROVIDERS: ATTEND Nurse Practitioner Family | DX: T81.89XD Other complications of procedures, not elsewhere classified, subsequent encounter (principal); R60.0 Localized edema; Z89.412 Acquired absence of left great toe | CPT/HCPCS: 11042 ==

== ENCOUNTER 2022-11-16 08:54 | Day surgery (SDC) | payer MEDICARE, MEDICAID ==
[2022-11-14 13:04] VITALS: BMI 23.6
[2022-11-16] MEDS ORDERED: Bupivacaine PF 0.5% 30 ML VIAL ONE (11:00)
[2022-11-16] MEDS ORDERED: Neomycin-Polymyxin 1 ML AMP ONE (11:00)
[2022-11-16] MEDS ORDERED: CEFAZOLIN 2 GM VIAL ONE (11:08)
[2022-11-16] MEDS ORDERED: Lidocaine 1% PF 5 ML VIAL ONE (11:09)
[2022-11-16] MEDS ORDERED: PROPOFOL 20 ML ONE (11:09)
[2022-11-16] MEDS ORDERED: Fentanyl 100 MCG/2 ML VIAL ONE ×2 (11:09→12:12)
[2022-11-16] MEDS ORDERED: Dexamethasone 4 mg/ml Vial ONE (11:09)
[2022-11-16] MEDS ORDERED: Ondansetron PF 4 MG/2 ML Vial ONE (11:09)
== END 2022-11-16 13:50 | disposition home or self-care (01) ==
LOC: CSHSDC 08:54
PROVIDERS: ATTEND Podiatrist Foot & Ankle Surgery
PROC: 0Y6T0Z1 Detachment at Right 3rd Toe, High, Open Approach (ICD-10-PCS; principal; 2022-11-16)
DX: M20.41 Other hammer toe(s) (acquired), right foot (principal); E11.69 Type 2 diabetes mellitus with other specified complication; M86.9 Osteomyelitis, unspecified; E11.52 Type 2 diabetes mellitus with diabetic peripheral angiopathy with gangrene; E11.42 Type 2 diabetes mellitus with diabetic polyneuropathy; I10 Essential (primary) hypertension; E78.5 Hyperlipidemia, unspecified; M54.41 Lumbago with sciatica, right side; F17.210 Nicotine dependence, cigarettes, uncomplicated; J44.9 Chronic obstructive pulmonary disease, unspecified; Z88.5 Allergy status to narcotic agent; Z79.82 Long term (current) use of aspirin; Z79.899 Other long term (current) drug therapy
CPT/HCPCS: 88305; 88311; J1100; J2405; J2704; J3010; S0020

== ENCOUNTER 2022-12-05 21:07 | Emergency (ER) | payer MEDICARE, OTHER ==
[~2022-12-05 21:07] MED LIST: Iopamidol 300 61% 100 ML VIAL FS ONE
[2022-12-05] MEDS ORDERED: Orphenadrine Citrate 60 MG/2 ML VIAL IM SCH (22:00)
[2022-12-05 22:22] LABS: #Basophils 0.1 10x3/uL (0.0-0.2); #Eosinphils 0.3 10x3/uL (0.0-0.5); #Monocytes 0.4 10x3/uL (0.0-1.1); #Neutrophils 2.5 10x3/uL (1.5-8.4); %Basophils 1.4 % (0.0-2.0); %Eosinophils 5.3 % (0.0-6.0); %Lymphocytes 36.5 % (18.0-47.0); %Monocytes 7.2 % (0.0-10.0); %Neutrophils 49.4 % (40.0-75.0); Hemoglobin 12.7 g/dL (12.0-15.5); Mean Corpuscular Hemoglobin 30.8 pg (27.0-33.0); Mean Corpuscular Volume 93.4 fl (81.6-98.3); Mean Platelet Volume 9.8 fl (7.4-10.4); Platelet Count 199 10x3/uL (150-450); RBC Distribution Width 14.3 % (11.5-14.5); Red Blood Cell (RBC) Count 4.12 10x6/uL (3.90-5.03); White Blood Cell (WBC) Count 5.1 10x3/uL (3.5-10.5)
[2022-12-05] MEDS ORDERED: Ketorolac Tromethamine 30 MG/ML VIAL ONE (22:27)
[2022-12-05 22:38] LABS: ALT (SGPT) 10 U/L (8-55); AST (SGOT) 23 U/L (5-34); Albumin 3.5 g/dL (3.4-4.8); Alkaline Phosphatase 119 U/L (40-110); Anion Gap 13 mmol/L (10-20); BUN (Urea Nitrogen) 11 mg/dL (9.8-20.1); Bilirubin, Total 0.2 mg/dL (0.2-1.2); Calc. Creatinine Clearance 0 mL/min (70-130); Calcium 8.8 mg/dL (7.8-10.44); Carbon Dioxide 29 mmol/L (23-31); Chloride 104 mmol/L (98-107); Estimated GFR 84; Globulin 2.8 g/dL (2.4-3.5); Glucose 80 mg/dL (80-115); Potassium 3.8 mmol/L (3.5-5.1); Protein, Total 6.3 g/dL (5.8-8.1); Sodium 142 mmol/L (136-145)
== END 2022-12-06 00:08 | disposition home or self-care (01) ==
LOC: CSHERS 21:07
DX: M54.50 Low back pain, unspecified (principal); G89.29 Other chronic pain; R10.30 Lower abdominal pain, unspecified; M79.604 Pain in right leg; E11.9 Type 2 diabetes mellitus without complications; I10 Essential (primary) hypertension; E11.40 Type 2 diabetes mellitus with diabetic neuropathy, unspecified; F17.210 Nicotine dependence, cigarettes, uncomplicated; Z79.899 Other long term (current) drug therapy
CPT/HCPCS: 74177; 80053; 85025; 96372; 96374; J1885; J2360; Q9967

== ENCOUNTER 2022-12-07 13:08 | Outpatient (CLI) | payer MEDICARE, OTHER | END 2022-12-07 13:09 | disposition home or self-care (01) | LOC: CSHWCC 13:08 | PROVIDERS: ATTEND Nurse Practitioner Family | DX: T81.89XD Other complications of procedures, not elsewhere classified, subsequent encounter (principal); Z89.412 Acquired absence of left great toe; R60.0 Localized edema | CPT/HCPCS: 97139; G0463; 99213 ==

== ENCOUNTER 2023-01-03 13:35 | Outpatient (CLI) | payer MEDICARE, MEDICAID | END 2023-01-03 13:36 | disposition home or self-care (01) | LOC: CSHWCC 13:35 | PROVIDERS: ATTEND Nurse Practitioner Family | DX: T81.89XD Other complications of procedures, not elsewhere classified, subsequent encounter (principal); R60.0 Localized edema | CPT/HCPCS: 97139; G0463; 99213 ==

== ENCOUNTER 2023-01-10 16:03 | Inpatient (IN) | payer MEDICARE, MEDICAID ==
[2023-01-10 17:03] LABS: Bilirubin Neg (Negative); Blood, Urine 25 (Negative); Clarity Cloudy (Clear); Glucose, Urine (Dipstick) Normal (Negative); Ketone, Urine Negative (Negative); Leukocyte 500 (Negative); Nitrite Positive (Negative); Protein, Urine (Dipstick) 30 mg/dl (Neg-Trace); Specific Gravity, Urine 1.015 (1.005-1.030); Urobilinogen Normal mg/dL (Less than 2)
[2023-01-10 17:11] LABS: Bacteria/HPF 3+ HPF (None Seen); Squamous Epithelial 0-3 HPF (0-3); WBC/HPF Greater Than 50 HPF (0-3)
[2023-01-10 17:12] LABS: Renal Epithelial 0-3 HPF (None Seen)
[2023-01-10 17:37] LABS: #Basophils 0.1 10x3/uL (0.0-0.2); #Eosinphils 0.3 10x3/uL (0.0-0.5); #Monocytes 0.4 10x3/uL (0.0-1.1); #Neutrophils 4.2 10x3/uL (1.5-8.4); %Basophils 0.7 % (0.0-2.0); %Eosinophils 4.8 % (0.0-6.0); %Lymphocytes 26.3 % (18.0-47.0); %Monocytes 6.4 % (0.0-10.0); %Neutrophils 61.5 % (40.0-75.0); Hemoglobin 12.9 g/dL (12.0-15.5); Mean Corpuscular HGB CONC 33.5 g/dL (32.0-36.0); Mean Corpuscular Volume 92.5 fl (81.6-98.3); Mean Platelet Volume 9.4 fl (7.4-10.4); Platelet Count 238 10x3/uL (150-450); RBC Distribution Width 13.3 % (11.5-14.5); Red Blood Cell (RBC) Count 4.16 10x6/uL (3.90-5.03); White Blood Cell (WBC) Count 6.9 10x3/uL (3.5-10.5)
[2023-01-10 17:57] LABS: ALT (SGPT) 9 U/L (8-55); AST (SGOT) 16 U/L (5-34); Albumin 3.5 g/dL (3.4-4.8); Alkaline Phosphatase 131 U/L (40-110); Anion Gap 13 mmol/L (10-20); BUN (Urea Nitrogen) 9 mg/dL (9.8-20.1); Bilirubin, Total 0.3 mg/dL (0.2-1.2); CK (CPK) 41 U/L (29-168); Calc. Creatinine Clearance 0 mL/min (70-130); Calcium 9.1 mg/dL (7.8-10.44); Carbon Dioxide 27 mmol/L (23-31); Chloride 101 mmol/L (98-107); Estimated GFR 78; Globulin 3.4 g/dL (2.4-3.5); Glucose 115 mg/dL (80-115); Potassium 4.1 mmol/L (3.5-5.1); Protein, Total 6.9 g/dL (5.8-8.1); Sodium 137 mmol/L (136-145)
[2023-01-10] MEDS ORDERED: cefTRIAXone (ROCEPHIN) 1 GM VIAL ONE (18:33)
[2023-01-10] MEDS ORDERED: Ketorolac Tromethamine 30 MG/ML VIAL ONE (18:33)
[2023-01-10] MEDS ORDERED: Insulin Regular 300 UNITS/3 ML VIAL SC PRN (19:16)
[2023-01-10] MEDS ORDERED: Ondansetron PF 4 MG/2 ML Vial IVP PRN (19:16)
[2023-01-10] MEDS ORDERED: Dextrose 50% Abboject 50 ML SYRINGE SLOW IVP PRN (19:16)
[2023-01-10] MEDS ORDERED: Acetaminophen 325 MG TAB PO PRN (19:16)
[2023-01-10] MEDS ORDERED: Dextrose 5% in Water 1,000 ML IV PRN (19:16)
[2023-01-10] MEDS ORDERED: Bisacodyl 5 MG TAB PO PRN (19:16)
[2023-01-10] MEDS ORDERED: Calcium Carbonate 500 MG ChewTAB PO PRN (19:16)
[2023-01-10] MEDS ORDERED: Guaifenesin DM 100-10/5 ML UDCUP PO PRN (19:16)
[2023-01-10] MEDS ORDERED: Atorvastatin Calcium 10 MG TAB PO SCH (21:00)
[2023-01-10] MEDS ORDERED: cefTRIAXone\\ROCEPHIN 1 GM in Sodium Chloride 0.9% 100 ML IVPB SCH (23:59)
[2023-01-10] MEDS ORDERED: Senokot S 8.6-50 MG TAB PO SCH (23:59)
[2023-01-10] MEDS ORDERED: Montelukast Sodium 10 mg Tablet PO SCH (23:59)
[2023-01-10] MEDS ORDERED: Sulfameth/Trimethoprim DS 800-160mg TAB PO SCH (23:59)
[2023-01-11] MEDS ORDERED: Gabapentin 300 MG CAP ONE ×2 (00:06→10:02)
[2023-01-11] MEDS ORDERED: Atorvastatin Calcium 10 MG TAB ONE (00:06)
[2023-01-11] MEDS ORDERED: Phenazopyridine HCl 95 MG TAB ONE ×2 (00:07→09:34)
[2023-01-11] MEDS ORDERED: Sulfameth/Trimethoprim DS 800-160mg TAB ONE ×2 (00:13→09:34)
[2023-01-11] MEDS ORDERED: cefTRIAXone (ROCEPHIN) 1 GM VIAL ONE (00:13)
[2023-01-11] MEDS: Gabapentin 300 MG CAP PO SCH ×2 (00:41→10:04)
[2023-01-11] MEDS: Phenazopyridine HCl 95 MG TAB PO SCH ×2 (00:41→09:47)
[2023-01-11] MEDS ORDERED: Pramipexole Di-HCl 0.25 MG TAB PO SCH (03:45)
[2023-01-11 04:35] LABS: Anion Gap 12 mmol/L (10-20); BUN (Urea Nitrogen) 12 mg/dL (9.8-20.1); Calc. Creatinine Clearance 0 mL/min (70-130); Calcium 9.1 mg/dL (7.8-10.44); Carbon Dioxide 28 mmol/L (23-31); Chloride 103 mmol/L (98-107); Estimated GFR 84; Glucose 87 mg/dL (80-115); Potassium 4.2 mmol/L (3.5-5.1); Sodium 139 mmol/L (136-145)
[2023-01-11 04:51] VITALS: BP 143/85; TEMP 98.3
[2023-01-11] MEDS ORDERED: Mometasone/Formoterol 200/5 60 PUFF INH SCH (06:30)
[2023-01-11] MEDS ORDERED: Saccharomyces boulardii 250 MG CAP PO SCH (09:00)
[2023-01-11] MEDS ORDERED: Senokot S 8.6-50 MG TAB PO SCH (09:00)
[2023-01-11] MEDS ORDERED: Lisinopril 10 MG TAB PO SCH (09:00)
[2023-01-11] MEDS ORDERED: Aspirin 81 mg Enteric Coated Tablet PO SCH (09:00)
[2023-01-11] MEDS ORDERED: Sulfameth/Trimethoprim DS 800-160mg TAB PO SCH (09:00)
[2023-01-11] MEDS ORDERED: Lisinopril 10 MG TAB ONE (09:36)
[2023-01-11] MEDS ORDERED: Aspirin 81 mg Enteric Coated Tablet ONE (09:36)
[2023-01-11] MEDS ORDERED: Sodium Chloride 0.9% 1,000 ML IV SCH (13:15)
[2023-01-11] MEDS ORDERED: Mometasone/Formoterol 200/5 60 PUFF INH ONE (13:50)
[2023-01-11] MEDS ORDERED: cefTRIAXone\\ROCEPHIN 2 GM in Sodium Chloride 0.9% 100 ML IVPB SCH (18:00)
[2023-01-11] MEDS ORDERED: Montelukast Sodium 10 mg Tablet PO SCH (21:00)
[2023-01-12] MEDS ORDERED: Saccharomyces boulardii 250 MG CAP PO SCH (14:00)
== END 2023-01-11 16:45 | disposition short-term general hospital (02) | DRG 690 ==
LOC: CSHERS 16:03 → CSHERHOLD 23:23
PROVIDERS: ADMIT Student in an Organized Health Care Education/Training Program; ATTEND Internal Medicine
DX: N39.0 Urinary tract infection, site not specified (principal); M86.8X9 Other osteomyelitis, unspecified sites; G89.29 Other chronic pain; I10 Essential (primary) hypertension; E11.51 Type 2 diabetes mellitus with diabetic peripheral angiopathy without gangrene; J45.909 Unspecified asthma, uncomplicated; F17.210 Nicotine dependence, cigarettes, uncomplicated; E11.40 Type 2 diabetes mellitus with diabetic neuropathy, unspecified; E11.69 Type 2 diabetes mellitus with other specified complication; B96.20 Unspecified Escherichia coli [E. coli] as the cause of diseases classified elsewhere; M06.9 Rheumatoid arthritis, unspecified; Z88.5 Allergy status to narcotic agent; Z79.899 Other long term (current) drug therapy; Z90.49 Acquired absence of other specified parts of digestive tract; Z90.710 Acquired absence of both cervix and uterus; Z98.890 Other specified postprocedural states
CPT/HCPCS: 36415; 36416; 74176; 80048; 80053; 81003; 81015; 82550; 85025; 87040; 87077; 87086; 94760; J0696; J1650; J1885; J3490

== ENCOUNTER 2023-01-31 13:10 | Outpatient (CLI) | payer MEDICARE, MEDICAID | END 2023-01-31 13:11 | disposition home or self-care (01) | LOC: CSHWCC 13:10 | PROVIDERS: ATTEND Nurse Practitioner Family | DX: E11.621 Type 2 diabetes mellitus with foot ulcer (principal) ==

== ENCOUNTER 2023-05-15 10:07 | Day surgery (SDC) | payer MEDICARE, MEDICAID ==
[2023-05-12 12:29] VITALS: BMI 25.2
[2023-05-15] MEDS ORDERED: CEFAZOLIN 2 GM VIAL ONE (11:18)
[2023-05-15] MEDS ORDERED: Midazolam HCl 2 mg/2 ml Vial ONE (11:34)
[2023-05-15] MEDS ORDERED: PROPOFOL 20 ML ONE (11:34)
[2023-05-15] MEDS ORDERED: fentaNYL 50 mcg/mL 1 mL Vial ONE (11:34)
[2023-05-15] MEDS ORDERED: Dexamethasone 20 MG/5 ML VIAL ONE (11:35)
[2023-05-15] MEDS ORDERED: Ondansetron PF 4 MG/2 ML Vial ONE (11:35)
[2023-05-15] MEDS ORDERED: Lidocaine 1% PF 5 ML VIAL ONE (11:35)
[2023-05-15] MEDS ORDERED: Bupivacaine 0.5% 10 ML VIAL ONE (11:54)
== END 2023-05-15 14:00 | disposition home or self-care (01) ==
LOC: CSHSDC 10:07
PROVIDERS: ATTEND Podiatrist Foot & Ankle Surgery
PROC: 0Y6U0Z1 Detachment at Left 3rd Toe, High, Open Approach (ICD-10-PCS; principal; 2023-05-15)
DX: M86.172 Other acute osteomyelitis, left ankle and foot (principal); E11.621 Type 2 diabetes mellitus with foot ulcer; L97.529 Non-pressure chronic ulcer of other part of left foot with unspecified severity; E11.42 Type 2 diabetes mellitus with diabetic polyneuropathy; E11.51 Type 2 diabetes mellitus with diabetic peripheral angiopathy without gangrene; I10 Essential (primary) hypertension; E78.5 Hyperlipidemia, unspecified; I73.9 Peripheral vascular disease, unspecified; M62.81 Muscle weakness (generalized); J44.9 Chronic obstructive pulmonary disease, unspecified; F17.210 Nicotine dependence, cigarettes, uncomplicated; Z88.6 Allergy status to analgesic agent; Z79.82 Long term (current) use of aspirin; Z79.899 Other long term (current) drug therapy; Z90.49 Acquired absence of other specified parts of digestive tract; Z90.710 Acquired absence of both cervix and uterus; Z89.411 Acquired absence of right great toe; Z89.412 Acquired absence of left great toe
CPT/HCPCS: 28825; 73620; J3010; 88305; 88311; J1100; J2250; J2405; J2704; J3490

== ENCOUNTER 2024-07-05 12:54 | Outpatient (CLI) | payer MEDICARE, MEDICAID ==
[2024-07-05 13:50] LABS: Hematocrit 41.4 % (34.9-44.5); Hemoglobin 13.7 g/dL (12.0-15.5); Mean Corpuscular HGB CONC 33.1 g/dL (32.0-36.0); Mean Corpuscular Hemoglobin 29.9 pg (27.0-33.0); Mean Corpuscular Volume 90.4 fL (81.6-98.3); Platelet Count 367 10x3/uL (150-450); RBC Distribution Width 14.4 % (11.5-14.5); Red Blood Cell (RBC) Count 4.58 10x6/uL (3.90-5.03); White Blood Cell (WBC) Count 7.6 10x3/uL (3.5-10.5)
[2024-07-05 14:00] LABS: Anion Gap 13 mmol/L (10-20); BUN (Urea Nitrogen) 8 mg/dL (9.8-20.1); Calc. Creatinine Clearance 0 mL/min (70-130); Calcium 9.2 mg/dL (7.8-10.44); Carbon Dioxide 26 mmol/L (23-31); Chloride 102 mmol/L (98-107); Estimated GFR 82; Glucose 96 mg/dL (80-115); Potassium 4.2 mmol/L (3.5-5.1); Sodium 137 mmol/L (136-145)
== END 2024-07-05 12:55 | disposition home or self-care (01) ==
LOC: CSHLAB 12:54
PROVIDERS: ATTEND Surgery
DX: Z01.818 Encounter for other preprocedural examination (principal); K43.9 Ventral hernia without obstruction or gangrene
CPT/HCPCS: 71046; 80048; 85027; 93005; 93010

== ENCOUNTER 2024-07-09 12:01 | Day surgery (SDC) | payer MEDICARE, MEDICAID ==
[2024-07-05 13:35] VITALS: BMI 26.2
[2024-07-09] MEDS ORDERED: PROPOFOL 20 ML ONE (12:41)
[2024-07-09] MEDS ORDERED: Dexamethasone 4 mg/ml Vial ONE (12:41)
[2024-07-09] MEDS ORDERED: Lidocaine 1% PF 5 ML VIAL ONE (12:41)
[2024-07-09] MEDS ORDERED: Bupivacaine/Epinephrine 0.25% 30 ML VIAL ONE (12:41)
[2024-07-09] MEDS ORDERED: Ondansetron PF 4 MG/2 ML Vial ONE (12:41)
[2024-07-09] MEDS ORDERED: Rocuronium Bromide 10 MG/ML (10ML VIAL) ONE (12:41)
[2024-07-09] MEDS ORDERED: fentaNYL 50 mcg/mL 1 mL Vial ONE ×5 (13:45→15:37)
[2024-07-09] MEDS ORDERED: SUCCINYLCHOLINE/SOD CL,ISO/PF 200 MG/10 ML SYRINGE FS ONE (13:45)
[2024-07-09] MEDS ORDERED: Bupivacaine HCl 0.5%/Epinephrine 1:200,000/PF 30 ml Vial ONE (13:46)
[2024-07-09] MEDS ORDERED: CEFAZOLIN 1 GM VIAL ONE ×2 (14:01→14:06)
[2024-07-09] MEDS ORDERED: SUGAMMADEX SODIUM 200 MG/2 ML VIAL ONE (14:40)
[2024-07-09] MEDS ORDERED: Ketorolac Tromethamine 30 MG (1 mL) VIAL ONE ×2 (14:56→15:15)
[2024-07-09] MEDS ORDERED: HYDROcodone/Acetaminophen 5/325 mg Tablet ONE (16:04)
== END 2024-07-09 16:55 | disposition home or self-care (01) ==
LOC: CSHSDC 12:01
PROVIDERS: ATTEND Surgery
PROC: 0WUF0JZ Supplement Abdominal Wall with Synthetic Substitute, Open Approach (ICD-10-PCS; principal; 2024-07-09)
DX: K43.9 Ventral hernia without obstruction or gangrene (principal); R10.13 Epigastric pain; K21.9 Gastro-esophageal reflux disease without esophagitis; F17.290 Nicotine dependence, other tobacco product, uncomplicated; Z98.84 Bariatric surgery status; Z79.899 Other long term (current) drug therapy; Z88.5 Allergy status to narcotic agent; Z98.890 Other specified postprocedural states; Z90.710 Acquired absence of both cervix and uterus; Z90.49 Acquired absence of other specified parts of digestive tract; Z90.89 Acquired absence of other organs
CPT/HCPCS: 49593; J0690; J1100; J1885; J2405; J2704; J3010; A6258; C1781

== ENCOUNTER 2024-07-16 09:37 | Day surgery (SDC) | payer MEDICARE, MEDICAID ==
[2024-07-12 15:57] VITALS: BMI 26.2
[2024-07-16] MEDS ORDERED: PROPOFOL 40 ML ONE (11:34)
[2024-07-16] MEDS ORDERED: fentaNYL 50 mcg/mL 1 mL Vial ONE (11:34)
[2024-07-16] MEDS ORDERED: PHENYLEPHRINE-NS 100 MCG/ML 10 ML SYRINGE ONE (11:49)
== END 2024-07-16 12:45 | disposition home or self-care (01) ==
LOC: CSHSDC 09:37
PROVIDERS: ATTEND Surgery
PROC: 0DJ08ZZ Inspection of Upper Intestinal Tract, Via Natural or Artificial Opening Endoscopic (ICD-10-PCS; principal; 2024-07-16)
DX: K21.9 Gastro-esophageal reflux disease without esophagitis (principal); K43.9 Ventral hernia without obstruction or gangrene; K44.9 Diaphragmatic hernia without obstruction or gangrene; F17.200 Nicotine dependence, unspecified, uncomplicated; Z88.5 Allergy status to narcotic agent; Z98.84 Bariatric surgery status; Z79.899 Other long term (current) drug therapy
CPT/HCPCS: 43200; J2704; J3010

== ENCOUNTER 2024-08-02 12:10 | Day surgery (SDC) | payer MEDICARE, MEDICAID ==
[2024-07-31 14:07] VITALS: BMI 29.2
[2024-08-02] MEDS ORDERED: Bupivacaine PF 0.5% 30 ML VIAL ONE (12:32)
[2024-08-02] MEDS ORDERED: CEFAZOLIN 2 GM VIAL ONE (12:32)
[2024-08-02] MEDS ORDERED: Lidocaine 1% PF 5 ML VIAL ONE (12:34)
[2024-08-02] MEDS ORDERED: PROPOFOL 20 ML ONE (12:34)
[2024-08-02] MEDS ORDERED: fentaNYL 50 mcg/mL 1 mL Vial ONE (12:34)
[2024-08-02] MEDS ORDERED: Famotidine/PF 20 mg/2ml Vial ONE (12:40)
[2024-08-02] MEDS ORDERED: Ondansetron PF 4 MG/2 ML Vial ONE (13:05)
[2024-08-02] MEDS ORDERED: Fentanyl 250 MCG/5 ML VIAL ONE (13:48)
[2024-08-02] MEDS ORDERED: HYDROcodone/Acetaminophen 5/325 mg Tablet ONE (14:14)
== END 2024-08-02 14:45 | disposition home or self-care (01) ==
LOC: CSHSDC 12:10
PROVIDERS: ATTEND Podiatrist Foot & Ankle Surgery
PROC: 0Y6V0Z1 Detachment at Right 4th Toe, High, Open Approach (ICD-10-PCS; principal; 2024-08-02)
DX: M20.41 Other hammer toe(s) (acquired), right foot (principal); K21.9 Gastro-esophageal reflux disease without esophagitis; I10 Essential (primary) hypertension; I25.10 Atherosclerotic heart disease of native coronary artery without angina pectoris; J44.9 Chronic obstructive pulmonary disease, unspecified; Z88.5 Allergy status to narcotic agent; Z79.899 Other long term (current) drug therapy
CPT/HCPCS: 28825; 73620; J0665; J2405; J2704; J3010 ×2; J3490

== ENCOUNTER 2025-04-22 14:49 | Outpatient (CLI) | payer OTHER | END 2025-04-22 14:50 | disposition home or self-care (01) | LOC: CSHWCC 14:49 | PROVIDERS: ATTEND Nurse Practitioner Family | DX: L89.892 Pressure ulcer of other site, stage 2 (principal); G90.09 Other idiopathic peripheral autonomic neuropathy; I73.9 Peripheral vascular disease, unspecified | CPT/HCPCS: 11042 ==

== ENCOUNTER 2025-05-09 11:18 | Outpatient (CLI) | payer OTHER, MEDICAID | END 2025-05-09 11:19 | disposition home or self-care (01) | LOC: CSHWCC 11:18 | PROVIDERS: ATTEND Nurse Practitioner Family | DX: L89.892 Pressure ulcer of other site, stage 2 (principal); G90.09 Other idiopathic peripheral autonomic neuropathy; I73.9 Peripheral vascular disease, unspecified | CPT/HCPCS: 99211; G0463 ==

== ENCOUNTER 2025-05-09 12:00 | Outpatient (CLI) | payer OTHER ==
[2025-05-09 13:03] LABS: Hematocrit 40.2 % (34.9-44.5); Hemoglobin 13.0 g/dL (12.0-15.5); Mean Corpuscular Hemoglobin 29.3 pg (27.0-33.0); Mean Corpuscular Volume 90.7 fL (81.6-98.3); Platelet Count 250 10x3/uL (150-450); Red Blood Cell (RBC) Count 4.43 10x6/uL (3.90-5.03); White Blood Cell (WBC) Count 7.45 10x3/uL (3.5-10.5)
[2025-05-09 13:20] LABS: Anion Gap 12 mmol/L (10-20); BUN (Urea Nitrogen) 18 mg/dL (9.8-20.1); Calc. Creatinine Clearance 0 mL/min (70-130); Calcium 8.4 mg/dL (7.8-10.44); Carbon Dioxide 22 mmol/L (23-31); Chloride 108 mmol/L (98-107); Glucose 112 mg/dL (80-115); Potassium 4.1 mmol/L (3.5-5.1); Sodium 138 mmol/L (136-145)
== END 2025-05-09 12:01 | disposition home or self-care (01) ==
LOC: CSHLAB 12:00
PROVIDERS: ATTEND Surgery
DX: Z01.818 Encounter for other preprocedural examination (principal); R13.19 Other dysphagia
CPT/HCPCS: 80048; 85027; 93005; 93010

== ENCOUNTER 2025-05-14 09:56 | Day surgery (SDC) | payer OTHER, MEDICAID ==
[2025-05-09 12:16] VITALS: BMI 31.2
[2025-05-14] MEDS ORDERED: Lidocaine 1% PF 5 ML VIAL ONE (12:37)
[2025-05-14] MEDS ORDERED: PROPOFOL 40 ML ONE (12:37)
== END 2025-05-14 13:45 | disposition home or self-care (01) ==
LOC: CSHSDC 09:56
PROVIDERS: ATTEND Surgery
PROC: 0DB68ZX Excision of Stomach, Via Natural or Artificial Opening Endoscopic, Diagnostic (ICD-10-PCS; principal; 2025-05-14)
DX: K21.9 Gastro-esophageal reflux disease without esophagitis (principal); K29.50 Unspecified chronic gastritis without bleeding; K44.9 Diaphragmatic hernia without obstruction or gangrene; E78.5 Hyperlipidemia, unspecified; I10 Essential (primary) hypertension; J45.909 Unspecified asthma, uncomplicated; Z88.5 Allergy status to narcotic agent
CPT/HCPCS: 43239; J2704; 88305; 88342

== ENCOUNTER 2025-05-15 15:05 | Outpatient (CLI) | payer OTHER | END 2025-05-15 15:06 | disposition home or self-care (01) | LOC: CSHWCC 15:05 | PROVIDERS: ATTEND Nurse Practitioner Family | DX: L89.892 Pressure ulcer of other site, stage 2 (principal); G90.09 Other idiopathic peripheral autonomic neuropathy; I73.9 Peripheral vascular disease, unspecified | CPT/HCPCS: 11042 ==

== ENCOUNTER 2025-05-29 14:38 | Outpatient (CLI) | payer OTHER | END 2025-05-29 14:39 | disposition home or self-care (01) | LOC: CSHWCC 14:38 | PROVIDERS: ATTEND Nurse Practitioner Family | DX: L89.892 Pressure ulcer of other site, stage 2 (principal); G90.09 Other idiopathic peripheral autonomic neuropathy; I73.9 Peripheral vascular disease, unspecified | CPT/HCPCS: 97597; G0463; 99213 ==

== ENCOUNTER 2025-06-06 12:51 | Outpatient (CLI) | payer OTHER | END 2025-06-06 12:52 | disposition home or self-care (01) | LOC: CSHWCC 12:51 | PROVIDERS: ATTEND Nurse Practitioner Family | DX: L89.892 Pressure ulcer of other site, stage 2 (principal); G90.09 Other idiopathic peripheral autonomic neuropathy; I73.9 Peripheral vascular disease, unspecified | CPT/HCPCS: 97597 ==

== ENCOUNTER 2025-06-12 14:39 | Outpatient (CLI) | payer OTHER | END 2025-06-12 14:40 | disposition home or self-care (01) | LOC: CSHWCC 14:39 | PROVIDERS: ATTEND Nurse Practitioner Family | DX: L89.892 Pressure ulcer of other site, stage 2 (principal); G90.09 Other idiopathic peripheral autonomic neuropathy; I73.9 Peripheral vascular disease, unspecified | CPT/HCPCS: 97597 ==

== ENCOUNTER 2025-06-26 13:34 | Outpatient (CLI) | payer OTHER | END 2025-06-26 13:35 | disposition home or self-care (01) | LOC: CSHWCC 13:34 | PROVIDERS: ATTEND Nurse Practitioner Family | DX: L89.892 Pressure ulcer of other site, stage 2 (principal); G90.09 Other idiopathic peripheral autonomic neuropathy; I73.9 Peripheral vascular disease, unspecified | CPT/HCPCS: 99212; G0463 ==

== ENCOUNTER 2025-07-16 15:25 | Outpatient (CLI) | payer OTHER | END 2025-07-16 15:26 | disposition home or self-care (01) | LOC: CSHWCC 15:25 | PROVIDERS: ATTEND Nurse Practitioner Family | DX: Z09 Encounter for follow-up examination after completed treatment for conditions other than malignant neoplasm (principal); Z87.2 Personal history of diseases of the skin and subcutaneous tissue; G90.09 Other idiopathic peripheral autonomic neuropathy; I73.9 Peripheral vascular disease, unspecified | CPT/HCPCS: 99212; G0463 ==

== ENCOUNTER 2025-07-21 09:30 | Observation (INO) | payer OTHER, MEDICAID ==
[2025-07-24 14:37] VITALS: BMI 30.2
[2025-07-28] MEDS ORDERED: Lidocaine 1% PF 5 ML VIAL ONE (07:15)
[2025-07-28] MEDS ORDERED: Rocuronium Bromide 10 MG/ML (10ML VIAL) ONE (07:15)
[2025-07-28] MEDS ORDERED: PROPOFOL 20 ML ONE (07:15)
[2025-07-28] MEDS ORDERED: PHENYLEPHRINE-NS 100 MCG/ML 10 ML SYRINGE ONE ×2 (07:54→09:17)
[2025-07-28] MEDS ORDERED: Ondansetron PF 4 MG/2 ML Vial ONE (10:10)
[2025-07-28] MEDS ORDERED: SUGAMMADEX SODIUM 200 MG/2 ML VIAL ONE (10:10)
[2025-07-28] MEDS ORDERED: Bupivacaine/Epinephrine 0.25% 30 ML VIAL ONE (10:15)
[2025-07-28] MEDS ORDERED: Glucagon 1 MG/ML KIT IM PRN (10:34)
[2025-07-28] MEDS ORDERED: Dextrose 50% Abboject 50 ML SYRINGE SLOW IVP PRN (10:34)
[2025-07-28] MEDS ORDERED: Ondansetron PF 4 MG/2 ML Vial IVP PRN (10:34)
[2025-07-28] MEDS ORDERED: diphenhydrAMINE 50 MG/ML VIAL IVP PRN (10:34)
[2025-07-28] MEDS ORDERED: hydrALAZINE 20 MG/ML VIAL ONE (11:02)
[2025-07-28] MEDS ORDERED: Ketorolac Tromethamine 30 MG (1 mL) VIAL ONE (14:35)
[2025-07-28] MEDS: hydrALAZINE 20 MG/ML VIAL SLOW IVP PRN (16:37)
[2025-07-28] MEDS: Hydrocodone-Acetamin 15 ML UDCUP PO PRN (17:25)
[2025-07-28] MEDS: Gabapentin 300 MG CAP PO SCH (17:26)
[2025-07-28] MEDS: D5 1/2 NS w/20 mEq KCL 1,000 ML IV SCH (17:30)
[2025-07-28] MEDS: Ketorolac Tromethamine 30 MG (1 mL) VIAL IVP SCH (17:31)
[2025-07-28] MEDS: Cyclobenzaprine 10 MG TAB PO SCH (18:34)
[2025-07-28] MEDS: PNEUMOC 20-VAL CONJ-DIP CRM/PF 0.5 ML SYRINGE IM ONE (18:53)
[2025-07-29] MEDS: Mometasone 100 MCG/PUFF (1 INHALER) INH SCH (06:00)
[2025-07-29] MEDS: Lisinopril 10 MG TAB PO SCH (08:59)
[2025-07-29] MEDS: Pantoprazole 40 MG VIAL IVP SCH (09:00)
[2025-07-29] MEDS: Enoxaparin 40 MG (0.4 mL) SYRINGE SC SCH (09:03)
[2025-07-29] MEDS: HYDROcodone/Acetaminophen 7.5/325 mg Tablet PO PRN (09:40)
[2025-07-29 16:46] VITALS: BP 137/79; TEMP 98.6
== END 2025-07-29 17:57 | disposition home or self-care (01) ==
LOC: INTOOBSV 07-28 06:02 → CSHTELE 07-28 06:02 → EDSTATUS 07-28 14:00 → CSHTELE 07-28 15:42
PROVIDERS: ADMIT Surgery; ATTEND Surgery
PROC: 0BQT4ZZ Repair Diaphragm, Percutaneous Endoscopic Approach (ICD-10-PCS; principal; 2025-07-28)
DX: K44.9 Diaphragmatic hernia without obstruction or gangrene (principal); K21.9 Gastro-esophageal reflux disease without esophagitis; F17.200 Nicotine dependence, unspecified, uncomplicated; Z88.5 Allergy status to narcotic agent
CPT/HCPCS: 43281; 82962; 94640 ×3; 94760 ×2; 97139; C1889; J0360 ×2; J1650; J1885 ×2; J2272 ×2; J2405; J2470; J2704; J3010; J3480 ×2; S2900; 36416